=== PATIENT | male | born 1960 | race Two or more races ===

== ENCOUNTER 2017-09-04 15:50 | Inpatient (IN) | payer MEDICAID ==
[2017-09-04 15:50] VITALS: BMI 23.6
--- NOTE | 2017-09-04 16:17 | C.PDOC ---
History Of Present Illness 56 y/o M c PMHx HTN, HLD, DM, gout, CKD p/w worsening renal function. Patient found to have creatinine of 11 on outpatient evaluation today, instructed to come to ED for emergent dialysis. Patient denies fever, chills, chest pain, dyspnea, palpitations, abdominal pain, back pain, numbness, weakness, cramping. Time Seen by Provider: 09/04/17 16:05 Chief Complaint (Nursing): Abnormal Labs Past Medical History Vital Signs: Last Vital Signs Temp 98.7 F 09/04/17 15:54 Pulse 83 09/04/17 16:46 Resp 18 09/04/17 16:46 BP 181/104 H 09/04/17 16:46 Pulse Ox 100 09/04/17 16:46 - Medical History PMH: HTN, Chronic Kidney Disease Family History: States: No Known Family Hx - Social History Hx Alcohol Use: No Hx Substance Use: No - Immunization History Hx Tetanus Toxoid Vaccination: No Hx Influenza Vaccination: No Hx Pneumococcal Vaccination: No Review Of Systems Except As Marked, All Systems Reviewed And Found Negative. Constitutional: Negative for: Fever Cardiovascular: Negative for: Chest Pain Physical Exam - Physical Exam Additional Physical Exam Comments: Gen: NAD Head: NC Eyes: No icterus ENT: MMM Neck: Supple Chest: No tenderness CV: Regular rate Resp: No accessory muscle use Abd: Soft, NT Back: No CVA tenderness Extremities: No tenderness Skin: No rash Neuro: Alert, no focal deficit ED Course And Treatment O2 Sat by Pulse Oximetry: 97 Medical Decision Making Medical Decision Making: Dr. Lezama, patient's house wirer consulted. Dr. Cervantes for catheter placement. Hospitalist accepts patient to their service. NSR 89 bpm, no ST/T wave changes. Normal intervals. No peaked T waves. Labs, EKG, 2 view CXR all performed earlier today, see in EMR and EKG in paper chart. Disposition - Disposition Disposition: HOSPITALIZED Disposition Time: 17:05 Condition: STABLE Forms: [facility] (Surinamese) - Clinical Impression Clinical Impression: Renal insufficiency, Hyperkalemia
[2017-09-04 17:02] LABS: URINE BACTERIA RARE (<OCC); URINE BILIRUBIN NEGATIVE (NEGATIVE); URINE BLOOD 1+ (NEGATIVE); URINE CLARITY Hazy (Clear); URINE COLOR Straw (YELLOW); URINE GLUCOSE (UA) 1+ mg/dL (Normal); URINE LEUKOCYTE ESTERASE NEG Leu/uL (Negative); URINE PROTEIN 3+ mg/dL (NEGATIVE); URINE UROBILINOGEN NORMAL mg/dL (0.2-1.0)
[2017-09-04] MEDS ORDERED: Glucagon Recombinant 1 mg Inj IM PRN (19:35)
[2017-09-04] MEDS ORDERED: Dextrose 50% SYRINGE Inj (50 ml) IV PRN (19:35)
--- NOTE | 2017-09-04 19:58 | CP.PCM.HP ---
<Kelsie Lee - Last Filed: 09/04/17 23:27> History of Present Illness - History of Present Illness History of Present Illness: HPI: 56 year old male with past medical history of new onset ESRD, gout, DM type II, HTN, HLD, anemia and rheumatoid arthritis presents to the ER for emergent dialysis. Patient states he is scheduled for an AV fistula on September 10. Patient went to see his PMD Dr. Nicole today for medical clearance and due to his abnormal labs Dr. Nicole sent the patient to the hospital for emergent dialysis. Patient denies chest pain, shortness of breath, leg edema, palpitations, anuria, nausea, vomiting, fever, recent travel, sick contacts, diarrhea or constipation. PMD: Dr. Nicole Oral Communication Instructor: Dr. Lezama Vascular Surgery: Dr. 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; smokes 6 cigarettes per day for 15 years; social drinker; denies illicit drug use Present on Admission - Present on Admission Any Indicators Present on Admission: No Review of Systems - Constitutional Constitutional: absent: Chills, Fever - EENT Eyes: absent: Blurred Vision - Cardiovascular Cardiovascular: absent: Chest Pain, Dyspnea, Leg Edema, Palpitations, Pedal Edema - Respiratory Respiratory: absent: Dyspnea - Gastrointestinal Gastrointestinal: absent: Abdominal Pain, Constipation, Diarrhea, Nausea, Vomiting - Genitourinary Genitourinary: absent: Dysuria, Hematuria - Musculoskeletal Musculoskeletal: absent: Numbness, Tingling - Neurological Neurological: absent: Dizziness, Headaches, Weakness - Psychiatric Psychiatric: absent: Anxiety Past Patient History - Past Social History Smoking Status: Light Smoker < 10 Cigarettes Daily - CARDIAC Hx Hypertension: Yes - RENAL Hx Chronic Kidney Disease: Yes - ENDOCRINE/METABOLIC Hx Diabetes Mellitus Type 2: Yes - MUSCULOSKELETAL/RHEUMATOLOGICAL Hx Gout: Yes - PSYCHIATRIC Hx Substance Use: No - SURGICAL HISTORY Hx Surgeries: Yes Hx Cataract Extraction: Yes Other/Comment: Spinal cord/tumor - ANESTHESIA Hx Anesthesia: Yes Meds Allergies/Adverse Reactions: Allergies Allergy/AdvReac Type Severity Reaction Status Date / Time No Known Allergies Allergy Verified 01/23/17 10:22 Physical Exam - Constitutional Appears: Well, Non-toxic, No Acute Distress - Head Exam Head Exam: ATRAUMATIC, NORMAL INSPECTION - Eye Exam Eye Exam: EOMI, Normal appearance, PERRL Pupil Exam: NORMAL ACCOMODATION - ENT Exam ENT Exam: Mucous Membranes Moist - Respiratory Exam Respiratory Exam: Clear to Auscultation Bilateral, NORMAL BREATHING PATTERN - Cardiovascular Exam Cardiovascular Exam: REGULAR RHYTHM, RRR, +S1, +S2 - GI/Abdominal Exam GI & Abdominal Exam: Normal Bowel Sounds, Soft. absent: Tenderness - Extremities Exam Extremities exam: Positive for: normal inspection, pedal pulses present. Negative for: joint swelling, pedal edema, tenderness - Neurological Exam Neurological exam: Alert, Oriented x3 - Psychiatric Exam Psychiatric exam: Normal Affect, Normal Mood - Skin Skin Exam: Dry, Intact, Normal Color Results - Vital Signs Recent Vital Signs: Last Vital Signs Temp 98.8 F 09/04/17 19:32 Pulse 91 H 09/04/17 19:32 Resp 20 09/04/17 19:32 BP 166/88 H 09/04/17 19:32 Pulse Ox 98 09/04/17 19:32 - Labs Labs: Laboratory Results - last 24 hr 09/04/17 09/04/17 16:42 16:48 Urine Color Straw Urine Clarity Hazy Urine pH 5.0 Ur Specific [place] 1.010 Urine Protein 3+ H Urine Glucose (UA) 1+ H Urine Ketones Negative Urine Blood 1+ H Urine Nitrate Negative Urine Bilirubin Negative Urine Urobilinogen Normal Ur Leukocyte Esterase Neg Urine WBC (Auto) 1 Urine RBC (Auto) 8 H Urine Bacteria Rare Blood Type A POSITIVE Antibody Screen Negative Assessment & Plan - Assessment and Plan (Free Text) Assessment: 1.) New Onset ESRD - BUN/Cr (from patient's records): 113/11.2 - Vascular Surgery Consult: Dr. Cervantes --> help appreciated - permacath placement 09/05/17 - NPO after midnight - Nephro Consult: Dr. Lezama --> help appreciated 2.) History of Anemia - secondary to ESRD 3.) History of Gout - Continue home medication: - Allopurinol 100mg daily - Colchicine 0.6mg po tiw - hold until the dialysis schedule is in place then can continue after receiving dialysis 4.) History of HTN - Continue home medications: - Norvasc 5mg daily - Coreg 6.25mg po bid - Clonidine 0.2mg po bid 5.) History of HLD - Cholestyramine 4gm po bid 6.) History of DM Type II - ISS - Accucheck - Hypoglycemia protocol 7.) History of RA 8.) Prophylaxis - Pepcid 20mg bid - heparin on hold for surgical procedure 09/05/17 - SCDs Case discussed with Dr. Kamar Lee PGY-1 <Anil Galvin P - Last Filed: 09/05/17 06:44> Results - Vital Signs Recent Vital Signs: Last Vital Signs Temp 98.4 F 09/05/17 00:00 Pulse 87 09/05/17 00:00 Resp 20 09/05/17 00:00 BP 135/79 09/05/17 00:00 Pulse Ox 99 09/05/17 00:00 - Labs Labs: Laboratory Results - last 24 hr 09/04/17 09/04/17 09/04/17 16:42 16:48 21:27 POC Glucose (mg/dL) 123 H Urine Color Straw Urine Clarity Hazy Urine pH 5.0 Ur Specific [place] 1.010 Urine Protein 3+ H Urine Glucose (UA) 1+ H Urine Ketones Negative Urine Blood 1+ H Urine Nitrate Negative Urine Bilirubin Negative Urine Urobilinogen Normal Ur Leukocyte Esterase Neg Urine WBC (Auto) 1 Urine RBC (Auto) 8 H Urine Bacteria Rare Blood Type A POSITIVE Antibody Screen Negative Attending/Attestation - Attestation I have personally seen and examined this patient.: Yes I have fully participated in the care of the patient.: Yes I have reviewed all pertinent clinical information: Yes Notes (Text): Severe CRI with mild hyperkalemia, acidosis, anemia, non compliance with food, h /o HTN, dm controlled, who on preop w/u for av fistula had abnormal labs and recommended to dialysis, permacath will be done today and likely hd today, possible dc then out pt fistula. Patient clinically not symptomatic, no distress. Family h/o renal insufficiency father on hd. 09/05/17 06:44
[2017-09-04] MEDS: (Novolin R) Insulin Human Regular 100 units/ml vial SC SCH (22:00)
--- NOTE | 2017-09-04 22:06 | CP.PCM.CON ---
History of Present Illness - History of Present Illness History of Present Illness: Vascular surgery Consult note for Dr. Kavon Gilliam, PGY-1 Pt S & E at bedside. 56M w/PMH sig for renal failure requiring HD access. Pt sent into hospital by blender helper with Cr 11. Admits to recent rhinorrhea, occasional REES, occasional dizziness/lightheadedness, peripheral neuropathy. Denies anuria, SOB , CP, N & V, F & C, changes in bowel or bladder habits, other complaints. PMH: HTN, HLD, DM, gout, CKD PSH: Benign tumor excision from back All: NDKA SH: Admit to tobacco use #6-7 cigarettes daily x 10 yrs, occasional ETOH use (1- 2 drinks monthly), denies illicit drug use Review of Systems - Review of Systems All systems: reviewed and no additional remarkable complaints except - Constitutional Constitutional: absent: Chills, Fever - EENT Eyes: Blurred Vision. absent: Change in Vision Ears: Dizziness - Cardiovascular Cardiovascular: Dyspnea on Exertion (occasional), Lightheadedness (chronic, intermittent). absent: Chest Pain - Respiratory Respiratory: Cough (occasional) - Gastrointestinal Gastrointestinal: absent: Abdominal Pain, Change in Bowel Habits, Constipation, Diarrhea, Nausea, Vomiting - Genitourinary Genitourinary: absent: Change in Urinary Stream, Difficulty Urinating, Dysuria - Musculoskeletal Musculoskeletal: Numbness, Tingling. absent: Back Pain - Integumentary Integumentary: absent: Non-Healing Lesions - Neurological Neurological: Dizziness. absent: Weakness - Psychiatric Psychiatric: absent: Change in Appetite Past Patient History - Past Medical History & Family History Past Medical History?: Yes - Past Social History Smoking Status: Light Smoker < 10 Cigarettes Daily - CARDIAC Hx Hypertension: Yes - RENAL Hx Chronic Kidney Disease: Yes - ENDOCRINE/METABOLIC Hx Diabetes Mellitus Type 2: Yes - MUSCULOSKELETAL/RHEUMATOLOGICAL Hx Gout: Yes - PSYCHIATRIC Hx Substance Use: No - SURGICAL HISTORY Hx Surgeries: Yes Hx Cataract Extraction: Yes Other/Comment: Spinal cord/tumor - ANESTHESIA Hx Anesthesia: Yes Meds Allergies/Adverse Reactions: Allergies Allergy/AdvReac Type Severity Reaction Status Date / Time No Known Allergies Allergy Verified 01/23/17 10:22 - Medications Medications: Current Medications Allopurinol (Zyloprim) 100 mg PO DAILY [facility] Amlodipine Besylate (Norvasc) 5 mg PO DAILY [facility] Calcitriol (Rocaltrol) 0.25 mcg PO DAILY [facility] Calcium Acetate (Phoslo) 667 mg PO TIDCC [facility] Carvedilol (Coreg) 6.25 mg PO BID [facility] Clonidine HCl (Catapres) 0.2 mg PO BID [facility] Colchicine (Colocrys) 0.6 mg PO DAILY [facility] Dextrose (Dextrose 50% Inj) 0 ml IV STAT PRN; Protocol PRN Reason: Hypoglycemia Protocol Dextrose (Glutose 15) 0 gm PO ONCE PRN; Protocol PRN Reason: Hypoglycemia Protocol Glucagon (Glucagen Diagnostic Kit) 0 mg IM STAT PRN; Protocol PRN Reason: Hypoglycemia Protocol Dextrose (Dextrose 5% In Water 1000 Ml) 1,000 mls @ 0 mls/hr IV .Q0M PRN; Protocol; Per Protocol PRN Reason: Hypoglycemia Protocol Insulin Human Regular (Novolin R) 0 unit SC ACHS [facility] PRN Reason: Protocol Pneumococcal Polyvalent Vaccine (Pneumovax 23 Vaccine) 0.5 ml IM .ONCE ONE Stop: 09/06/17 10:01 Sodium Bicarbonate (Sodium Bicarbonate Tab) 650 mg PO BID [facility] Physical Exam - Constitutional Appears: Non-toxic, No Acute Distress - Head Exam Head Exam: ATRAUMATIC, NORMAL INSPECTION, NORMOCEPHALIC - Eye Exam Eye Exam: EOMI, Normal appearance - ENT Exam ENT Exam: Mucous Membranes Moist, Normal Exam - Neck Exam Neck exam: Positive for: Full Rom, Normal Inspection - Respiratory Exam Respiratory Exam: NORMAL BREATHING PATTERN - Cardiovascular Exam Cardiovascular Exam: REGULAR RHYTHM, +S1, +S2 - GI/Abdominal Exam GI & Abdominal Exam: Soft. absent: Distended, Firm, Guarding, Tenderness - Extremities Exam Extremities exam: Positive for: normal inspection - Neurological Exam Neurological exam: Alert, CN II-XII Intact, Oriented x3 - Psychiatric Exam Psychiatric exam: Normal Affect, Normal Mood - Skin Skin Exam: Dry, Intact, Normal Color, Warm Results - Vital Signs Recent Vital Signs: Last Vital Signs Temp 98.8 F 09/04/17 19:32 Pulse 91 H 09/04/17 19:32 Resp 20 09/04/17 19:32 BP 166/88 H 09/04/17 19:32 Pulse Ox 98 09/04/17 19:32 - Labs Labs: Laboratory Results - last 24 hr 09/04/17 09/04/17 09/04/17 16:42 16:48 21:27 POC Glucose (mg/dL) 123 H Urine Color Straw Urine Clarity Hazy Urine pH 5.0 Ur Specific [place] 1.010 Urine Protein 3+ H Urine Glucose (UA) 1+ H Urine Ketones Negative Urine Blood 1+ H Urine Nitrate Negative Urine Bilirubin Negative Urine Urobilinogen Normal Ur Leukocyte Esterase Neg Urine WBC (Auto) 1 Urine RBC (Auto) 8 H Urine Bacteria Rare Blood Type A POSITIVE Antibody Screen Negative Assessment & Plan - Assessment and Plan (Free Text) Assessment: 56M w/PMH sig for renal failure requiring HD access Plan: Plan for permacath placement tomorrow NPO pMN Contraindications to VTE ppx Consent in chart Further mgmt as per primary and nephro teams DW attending Tawana, PGY-1 - Date & Time Date: 09/04/17 Time: 20:20
[2017-09-05] MEDS: (Novolin R) Insulin Human Regular 100 units/ml vial SC SCH ×4 (07:30→21:11)
[2017-09-05 08:17] LABS: BASO # 0.1 K/uL (0.0-0.2); EOS # 1.3 K/uL (0.0-0.7); EOS % 16.7 % (0.0-4.0); HEMOGLOBIN 7.6 g/dL (12.0-18.0); LYMPH # 1.9 K/uL (1.0-4.3); LYMPH % 24.3 % (20.0-40.0); MEAN CELL VOLUME 81.9 fL (80.0-94.0); MEAN CORPUSCULAR HEMOGLOBIN 26.6 pg (27.0-31.0); MEAN CORPUSCULAR HGB CONC 32.4 g/dL (33.0-37.0); MEAN PLATELET VOLUME 7.8 fL (7.2-11.7); MONO # 0.5 K/uL (0.0-0.8); MONO % 6.8 % (0.0-10.0); NEUT # 4.1 K/uL (1.8-7.0); NEUT % 51.2 % (50.0-75.0); RBC 2.86 Mil/uL (4.40-5.90); RED CELL DISTRIBUTION WIDTH 19.8 % (11.5-14.5)
[2017-09-05 08:23] LABS: PROTHROMBIN TIME 10.6 SECONDS (9.7-12.2)
[2017-09-05 08:33] LABS: IRON 74 ug/dL (49-181)
[2017-09-05 08:42] LABS: % IRON SATURATION 24 (20-55); TOTAL IRON BINDING CAPACITY 305 ug/dL (250-450)
[2017-09-05 08:47] LABS: ALB/GLOB RATIO 0.9 (1.0-2.1); ALBUMIN 3.7 g/dL (3.5-5.0); CALCIUM 8.8 mg/dl (8.6-10.4)
--- NOTE | 2017-09-05 09:19 | CP.PCM.PN ---
<Anton Reddy - Last Filed: 09/05/17 15:30> Subjective - Date & Time of Evaluation Date of Evaluation: 09/05/17 Time of Evaluation: 09:16 - Subjective Subjective: PGY-[address] Nreeida Anaya. No acute events noted overnight. Patient was seen receiving HD. He stated he had some pain at the new catheter site but otherwise he stated he felt well. He understood that he'll need another procedure soon for a longer lasting HD access point, he understood this. He denied all other prompts on review of systems. Objective - Vital Signs/Intake and Output Vital Signs (last 24 hours): Temp Pulse Resp BP Pulse Ox 98.3 F 80 20 140/80 99 09/05/17 08:04 09/05/17 08:04 09/05/17 08:04 09/05/17 08:04 09/05/17 08:04 Intake and Output: 09/05/17 09/05/17 06:59 18:59 Intake Total 240 Balance 240 - Medications Medications: Current Medications Allopurinol (Zyloprim) 100 mg PO DAILY [facility] Amlodipine Besylate (Norvasc) 5 mg PO DAILY [facility] Last Admin: 09/05/17 09:15 Dose: 5 mg Calcitriol (Rocaltrol) 0.25 mcg PO DAILY [facility] Calcium Acetate (Phoslo) 667 mg PO TIDCC [facility] Carvedilol (Coreg) 6.25 mg PO BID [facility] Last Admin: 09/05/17 09:15 Dose: 6.25 mg Cholestyramine Resin (Prevalite) 4 gm PO BID [facility] Clonidine HCl (Catapres) 0.2 mg PO BID [facility] Last Admin: 09/05/17 09:15 Dose: 0.2 mg Dextrose (Dextrose 50% Inj) 0 ml IV STAT PRN; Protocol PRN Reason: Hypoglycemia Protocol Dextrose (Glutose 15) 0 gm PO ONCE PRN; Protocol PRN Reason: Hypoglycemia Protocol Famotidine (Pepcid) 20 mg PO BID [facility] Glucagon (Glucagen Diagnostic Kit) 0 mg IM STAT PRN; Protocol PRN Reason: Hypoglycemia Protocol Dextrose (Dextrose 5% In Water 1000 Ml) 1,000 mls @ 0 mls/hr IV .Q0M PRN; Protocol; Per Protocol PRN Reason: Hypoglycemia Protocol Insulin Human Regular (Novolin R) 0 unit SC ACHS [facility] PRN Reason: Protocol Last Admin: 09/04/17 22:00 Dose: Not Given Pneumococcal Polyvalent Vaccine (Pneumovax 23 Vaccine) 0.5 ml IM .ONCE ONE Stop: 09/06/17 10:01 Sodium Bicarbonate (Sodium Bicarbonate Tab) 650 mg PO BID [facility] - Labs Labs: 09/05/17 08:00 09/05/17 08:00 PT 10.6 SECONDS (9.7-12.2) 09/05/17 08:00 INR 1.0 09/05/17 08:00 APTT 31 SECONDS (21-34) 09/05/17 08:00 - Additional Findings Additional findings: - Constitutional Appears: Well, Non-toxic, No Acute Distress - Head Exam Head Exam: ATRAUMATIC, NORMAL INSPECTION - Eye Exam Eye Exam: EOMI, Normal appearance, PERRL Pupil Exam: NORMAL ACCOMODATION - ENT Exam ENT Exam: Mucous Membranes Moist - Respiratory Exam Respiratory Exam: Clear to Auscultation Bilateral, NORMAL BREATHING PATTERN - Cardiovascular Exam Cardiovascular Exam: REGULAR RHYTHM, RRR, +S1, +S2 - GI/Abdominal Exam GI & Abdominal Exam: Normal Bowel Sounds, Soft. absent: Tenderness - Extremities Exam Extremities exam: Positive for: normal inspection, pedal pulses present. Negative for: joint swelling, pedal edema, tenderness - Neurological Exam Neurological exam: Alert, Oriented x3 - Psychiatric Exam Psychiatric exam: Normal Affect, Normal Mood - Skin Skin Exam: Dry, Intact, Normal Color Assessment and Plan - Assessment and Plan (Free Text) Assessment: New Onset ESRD - Vascular Surgery Consult: Dr. Cervantes --> help appreciated - s/p permacath placement right IJ 09/05/17 - AV fistula scheduled for 09/10/[address] Cervantes - Nephro Consult: Dr. Lezama --> help appreciated - HD scheduled MWF - F/U PTH - Meds: - Calcitriol 0.25mcg PO QD - Sodium Bicarbonate 650mg PO BID - Procrit 10,000u IV MWF History of Anemia - secondary to ESRD - F/U peripheral blood smear - F/U Iron studies, Hep Panel History of Gout - Continue home medication: - Allopurinol 100mg daily - Colchicine 0.6mg po tiw - hold until the dialysis schedule is in place then can continue after receiving dialysis History of HTN - Continue home medications: - Norvasc 5mg daily - Coreg 6.25mg po bid - Clonidine 0.2mg po bid History of HLD - Cholestyramine 4gm po bid History of DM Type II - ISS - Accucheck - Hypoglycemia protocol History of RA Prophylaxis - Pepcid 20mg bid - heparin on hold for surgical procedure 09/05/17 - SCDs <Saurabh Anaya - Last Filed: 09/05/17 18:34> Objective - Vital Signs/Intake and Output Vital Signs (last 24 hours): Temp Pulse Resp BP Pulse Ox 97.3 F L 82 14 130/88 98 09/05/17 15:55 09/05/17 17:29 09/05/17 17:29 09/05/17 17:29 09/05/17 15:00 Intake and Output: 09/05/17 09/05/17 06:59 18:59 Intake Total 240 450 Balance 240 450 - Medications Medications: Current Medications Acetaminophen (Tylenol 325mg Tab) 650 mg PO Q6 PRN PRN Reason: Pain, moderate (4-7) Allopurinol (Zyloprim) 100 mg PO DAILY [facility] Last Admin: 09/05/17 09:18 Dose: 100 mg Amlodipine Besylate (Norvasc) 5 mg PO DAILY [facility] Last Admin: 09/05/17 09:15 Dose: 5 mg Calcitriol (Rocaltrol) 0.25 mcg PO DAILY [facility] Last Admin: 09/05/17 10:00 Dose: Not Given Calcium Acetate (Phoslo) 667 mg PO TIDCC [facility] Last Admin: 09/05/17 12:05 Dose: Not Given Carvedilol (Coreg) 6.25 mg PO BID [facility] Last Admin: 09/05/17 09:15 Dose: 6.25 mg Cholestyramine Resin (Prevalite) 4 gm PO BID [facility] Last Admin: 09/05/17 10:00 Dose: Not Given Clonidine HCl (Catapres) 0.2 mg PO BID [facility] Last Admin: 09/05/17 09:15 Dose: 0.2 mg Dextrose (Dextrose 50% Inj) 0 ml IV STAT PRN; Protocol PRN Reason: Hypoglycemia Protocol Dextrose (Glutose 15) 0 gm PO ONCE PRN; Protocol PRN Reason: Hypoglycemia Protocol Epoetin Chuy (Procrit) 10,000 unit IV MWF [facility] Last Admin: 09/05/17 17:54 Dose: 10,000 unit Famotidine (Pepcid) 20 mg PO BID [facility] Last Admin: 09/05/17 09:17 Dose: 20 mg Glucagon (Glucagen Diagnostic Kit) 0 mg IM STAT PRN; Protocol PRN Reason: Hypoglycemia Protocol Dextrose (Dextrose 5% In Water 1000 Ml) 1,000 mls @ 0 mls/hr IV .Q0M PRN; Protocol; Per Protocol PRN Reason: Hypoglycemia Protocol Sodium Chloride (Sodium Chloride 0.9%) 1,000 mls @ 100 mls/hr IV .Q10H [facility] Last Admin: 09/05/17 13:00 Dose: Not Given Insulin Human Regular (Novolin R) 0 unit SC ACHS [facility] PRN Reason: Protocol Last Admin: 09/05/17 11:30 Dose: Not Given Pneumococcal Polyvalent Vaccine (Pneumovax 23 Vaccine) 0.5 ml IM .ONCE ONE Stop: 09/06/17 10:01 Sodium Bicarbonate (Sodium Bicarbonate Tab) 650 mg PO BID [facility] Last Admin: 09/05/17 09:18 Dose: 650 mg - Labs Labs: 09/05/17 08:00 09/05/17 16:18 PT 10.6 SECONDS (9.7-12.2) 09/05/17 08:00 INR 1.0 09/05/17 08:00 APTT 31 SECONDS (21-34) 09/05/17 08:00 Attending/Attestation - Attestation I have personally seen and examined this patient.: Yes I have fully participated in the care of the patient.: Yes I have reviewed all pertinent clinical information, including history, physical exam and plan: Yes Notes (Text): 09/05/17 18:31 Patient was seen and examined at 2:45 PM Exam, assessment and plan were gone over with the resident. Spoke with Agricultural Extension Educator following patient and patient is for AV Fistula placement for Friday09/10/17. He will need to be NPO after midnight on . Spoke with Head Of Physics Dariel: patient will need to have 3 in-patient HD before discharge. Process for out-patient HD placement has been started. The above was also explained to patient and he expressed understanding. Saurabh Anaya D.O.
[2017-09-05 09:38] LABS: FOLATE 11.1 ng/mL
[2017-09-05] MEDS: Cholestyramine 4 gm/5.5 gm UD Packet PO SCH ×2 (10:00→18:10)
[2017-09-05] MEDS ORDERED: ceFAZolin 1 gm in NS 1 GM/100 ML BAG IVPB ONE (10:43)
[2017-09-05] MEDS ORDERED: HEPARIN-NS 5,000 UNITS/500 ML 5,000 UNIT/500 ML BAG IV ONE ×2 (10:44→11:38)
[2017-09-05] MEDS ORDERED: Lidocaine Hydrochloride 10 ML INJ ONE (10:44)
[2017-09-05] MEDS ORDERED: Iohexol 240 (50 ml) ONE (10:45)
[2017-09-05] MEDS ORDERED: Midazolam 2 MG/2 ML VIAL ONE (10:51)
[2017-09-05] MEDS ORDERED: Propofol 10 mg/ml Inj (20 ML) ONE (10:51)
[2017-09-05] MEDS ORDERED: ePHEDrine 50 mg/ml Inj ONE (11:55)
[2017-09-05] MEDS ORDERED: Sodium Chloride 0.9% 500 ML IV ONE (12:39)
--- NOTE | 2017-09-05 12:39 | PCM.SURG1 ---
Surgeon's Initial Post Op Note - Surgeon's Notes Surgeon: Dr. Cervantes Booking Officer: Dr. Metcalf, PGY-3 Type of Anesthesia: General LMA Anesthesia Administered By: Dr. Oquendo Pre-Operative Diagnosis: End Stage Renal Disease Operative Findings: See operative report Post-Operative Diagnosis: Same Operation Performed: R IJ permacath insertion Specimen/Specimens Removed: none Estimated Blood Loss: EBL {In ML}: 5 Blood Products Given: N/A Drains Used: No Drains Post-Op Condition: Good Date of Surgery/Procedure: 09/05/17 Time of Surgery/Procedure: 12:39
[2017-09-05] MEDS ORDERED: HYDROmorphone 0.5 mg/0.5 ml ISec IVP PRN (12:47)
[2017-09-05] MEDS: Sodium Chloride 0.9% 1,000 ML IV SCH ×2 (13:00→21:59)
--- NOTE | 2017-09-05 13:41 | RAD ---
HISTORY: Status post right IJ permacath insertion COMPARISON: Item FINDINGS: Interval placement right IJ of PermCath with tip in the SVC/RA junction. LUNGS: Central pulmonary vasculature is slightly increased possibly due to mild chronic compensated pulmonary edema/ fluid overload. There also appears to be some areas of atelectasis and nodular densities right upper lobe possibly representing small granulomata. Followup nonemergent CT scan of the chest could be performed for further evaluation of these small nodules. PLEURA: No evidence of pneumothorax or effusion. CARDIOVASCULAR: Cardiomegaly. OSSEOUS STRUCTURES: No significant abnormalities. VISUALIZED UPPER ABDOMEN: Normal. OTHER FINDINGS: None. IMPRESSION: Interval placement of right IJ PermCath with tip in the SVC/RA junction. No evidence of pneumothorax. Findings suggest mild chronic pulmonary edema and/or fluid overload. Minor atelectasis right upper lobe fold within few scattered nodular opacities again noted ; followup studies could be performed as above
--- NOTE | 2017-09-05 13:47 | RAD ---
PROCEDURE: Intraoperative Fluoroscopy. HISTORY: RENAL FAILURE FINDINGS: Fluoroscopic assistance was provided. 20.4 seconds fluoroscopy time utilized during this procedure. Radiation dose = 1.26 mGy. Please refer to the operative report from ELISABET Palmer.
--- NOTE | 2017-09-05 13:48 | CP.PCM.CON ---
History of Present Illness - History of Present Illness History of Present Illness: 56M w/PMH sig for renal failure requiring HD, admitted with creatinine > 11mg% .. Pt sent into hospital with Cr 11and hyperkalemia. Admits to recent rhinorrhea, occasional REES, occasional dizziness/lightheadedness, peripheral neuropathy. Denies anuria, SOB, CP, N & V, F & C, changes in bowel or bladder habits, other complaints. PMH: HTN, HLD, DM, gout, CKD 5, rheumatoid arthritis. PSH: Benign tumor excision from back All: NDKA SH: Admit to tobacco use #6-7 cigarettes daily x 10 yrs, occasional ETOH use (1- 2 drinks monthly), denies illicit drug use Now s/p permcath insertion. Review of Systems - Constitutional Constitutional: Fatigue, Weakness - EENT Eyes: Blurred Vision, Change in Vision Ears: absent: As Per HPI, Decreased Hearing, Ear Discharge, Ear Pain, Tinnitus, Abnormal Hearing, Disequilibrium, Dizziness, Other Nose/Mouth/Throat: Epistaxis - Cardiovascular Cardiovascular: Dyspnea on Exertion - Respiratory Respiratory: Cough, Dyspnea on Exertion - Gastrointestinal Gastrointestinal: absent: As Per HPI, Abdominal Pain, Belching, Bloating, Change in Bowel Habits, Change in Stool Character, Coffee Ground Emesis, Constipation, Cramping, Diarrhea, Dyspepsia, Dysphagia, Early Satiety, Excessive Flatus, Fecal Incontinence, Heartburn, Hematemesis, Hematochezia, Loose Stools, Melena, Nausea, Odynophagia, Temesmus, Vomiting, Other - Genitourinary Genitourinary: As Per HPI - Musculoskeletal Musculoskeletal: Muscle Cramps, Muscle Weakness, Myalgias - Neurological Neurological: Weakness Past Patient History - Past Medical History & Family History Past Medical History?: Yes - Past Social History Smoking Status: Light Smoker < 10 Cigarettes Daily Chewing Tobacco Use: No Cigar Use: No Alcohol: Occasional Drugs: Denies Home Situation {Lives}: With Family - CARDIAC Hx Hypertension: Yes - RENAL Hx Chronic Kidney Disease: Yes - ENDOCRINE/METABOLIC Hx Diabetes Mellitus Type 2: Yes - MUSCULOSKELETAL/RHEUMATOLOGICAL Hx Gout: Yes - PSYCHIATRIC Hx Substance Use: No - SURGICAL HISTORY Hx Surgeries: Yes Hx Cataract Extraction: Yes Other/Comment: Spinal cord/tumor - ANESTHESIA Hx Anesthesia: Yes Meds Allergies/Adverse Reactions: Allergies Allergy/AdvReac Type Severity Reaction Status Date / Time No Known Allergies Allergy Verified 01/23/17 10:22 - Medications Medications: Current Medications Acetaminophen (Tylenol 325mg Tab) 650 mg PO Q6 PRN PRN Reason: Pain, moderate (4-7) Allopurinol (Zyloprim) 100 mg PO DAILY [facility] Last Admin: 09/05/17 09:18 Dose: 100 mg Amlodipine Besylate (Norvasc) 5 mg PO DAILY [facility] Last Admin: 09/05/17 09:15 Dose: 5 mg Calcitriol (Rocaltrol) 0.25 mcg PO DAILY [facility] Calcium Acetate (Phoslo) 667 mg PO TIDCC [facility] Last Admin: 09/05/17 08:00 Dose: 667 mg Carvedilol (Coreg) 6.25 mg PO BID [facility] Last Admin: 09/05/17 09:15 Dose: 6.25 mg Cholestyramine Resin (Prevalite) 4 gm PO BID [facility] Clonidine HCl (Catapres) 0.2 mg PO BID [facility] Last Admin: 09/05/17 09:15 Dose: 0.2 mg Dextrose (Dextrose 50% Inj) 0 ml IV STAT PRN; Protocol PRN Reason: Hypoglycemia Protocol Dextrose (Glutose 15) 0 gm PO ONCE PRN; Protocol PRN Reason: Hypoglycemia Protocol Famotidine (Pepcid) 20 mg PO BID [facility] Last Admin: 09/05/17 09:17 Dose: 20 mg Glucagon (Glucagen Diagnostic Kit) 0 mg IM STAT PRN; Protocol PRN Reason: Hypoglycemia Protocol Hydromorphone HCl (Dilaudid) 0.5 mg IVP Q10M PRN PRN Reason: Pain, moderate (4-7) Stop: 09/05/17 14:48 Dextrose (Dextrose 5% In Water 1000 Ml) 1,000 mls @ 0 mls/hr IV .Q0M PRN; Protocol; Per Protocol PRN Reason: Hypoglycemia Protocol Sodium Chloride (Sodium Chloride 0.9%) 1,000 mls @ 100 mls/hr IV .Q10H [facility] Insulin Human Regular (Novolin R) 0 unit SC ACHS [facility] PRN Reason: Protocol Last Admin: 09/04/17 22:00 Dose: Not Given Ondansetron HCl (Zofran Inj) 4 mg IVP ONCE PRN PRN Reason: Nausea/Vomiting Stop: 09/05/17 14:49 Pneumococcal Polyvalent Vaccine (Pneumovax 23 Vaccine) 0.5 ml IM .ONCE ONE Stop: 09/06/17 10:01 Sodium Bicarbonate (Sodium Bicarbonate Tab) 650 mg PO BID [facility] Last Admin: 09/05/17 09:18 Dose: 650 mg Physical Exam - Constitutional Appears: No Acute Distress, Chronically Ill - Head Exam Head Exam: ATRAUMATIC, NORMAL INSPECTION - Eye Exam Eye Exam: EOMI, Normal appearance - Neck Exam Neck exam: Positive for: Normal Inspection. Negative for: Tenderness - Respiratory Exam Respiratory Exam: Clear to Auscultation Bilateral, NORMAL BREATHING PATTERN - Cardiovascular Exam Cardiovascular Exam: REGULAR RHYTHM, +S1 - GI/Abdominal Exam GI & Abdominal Exam: Soft. absent: Tenderness - Extremities Exam Extremities exam: Positive for: normal inspection. Negative for: tenderness - Neurological Exam Neurological exam: Alert, CN II-XII Intact - Skin Skin Exam: Dry, Warm Results - Vital Signs Recent Vital Signs: Last Vital Signs Temp 97.9 F 09/05/17 12:39 Pulse 67 09/05/17 13:30 Resp 16 09/05/17 13:30 BP 137/80 09/05/17 13:30 Pulse Ox 100 09/05/17 13:30 - Labs Result Diagrams: 09/05/17 08:00 09/05/17 08:00 Labs: Laboratory Results - last 24 hr 09/04/17 09/04/17 09/04/17 16:42 16:48 21:27 WBC RBC Hgb Hct MCV MCH MCHC RDW Plt Count MPV Neut % (Auto) Lymph % (Auto) [place] % (Auto) Eos % (Auto) Baso % (Auto) Neut # (Auto) Lymph # (Auto) [place] # (Auto) Eos # (Auto) Baso # (Auto) PT INR APTT Sodium Potassium Chloride Carbon Dioxide Anion Gap BUN Creatinine Est GFR ( Amer) Est GFR (Non-Af Amer) POC Glucose (mg/dL) 123 H Random Glucose Hemoglobin A1c Calcium Phosphorus Magnesium Iron TIBC % Saturation Total Bilirubin AST ALT Alkaline Phosphatase Total Protein Albumin Globulin Albumin/Globulin Ratio Triglycerides Cholesterol LDL Cholesterol Direct HDL Cholesterol Vitamin B12 Folate TSH 3rd Generation Urine Color Straw Urine Clarity Hazy Urine pH 5.0 Ur Specific [place] 1.010 Urine Protein 3+ H Urine Glucose (UA) 1+ H Urine Ketones Negative Urine Blood 1+ H Urine Nitrate Negative Urine Bilirubin Negative Urine Urobilinogen Normal Ur Leukocyte Esterase Neg Urine WBC (Auto) 1 Urine RBC (Auto) 8 H Urine Bacteria Rare Blood Type A POSITIVE Antibody Screen Negative 09/05/17 09/05/17 09/05/17 07:19 08:00 08:00 WBC 8.0 RBC 2.86 L Hgb 7.6 L Hct 23.4 L MCV 81.9 MCH 26.6 L MCHC 32.4 L RDW 19.8 H Plt Count 280 MPV 7.8 Neut % (Auto) 51.2 Lymph % (Auto) 24.3 [place] % (Auto) 6.8 Eos % (Auto) 16.7 H Baso % (Auto) 1.0 Neut # (Auto) 4.1 Lymph # (Auto) 1.9 [place] # (Auto) 0.5 Eos # (Auto) 1.3 H Baso # (Auto) 0.1 PT 10.6 INR 1.0 APTT 31 Sodium Potassium Chloride Carbon Dioxide Anion Gap BUN Creatinine Est GFR ( Amer) Est GFR (Non-Af Amer) POC Glucose (mg/dL) 74 Random Glucose Hemoglobin A1c Calcium Phosphorus Magnesium Iron TIBC % Saturation Total Bilirubin AST ALT Alkaline Phosphatase Total Protein Albumin Globulin Albumin/Globulin Ratio Triglycerides Cholesterol LDL Cholesterol Direct HDL Cholesterol Vitamin B12 Folate TSH 3rd Generation Urine Color Urine Clarity Urine pH Ur Specific [place] Urine Protein Urine Glucose (UA) Urine Ketones Urine Blood Urine Nitrate Urine Bilirubin Urine Urobilinogen Ur Leukocyte Esterase Urine WBC (Auto) Urine RBC (Auto) Urine Bacteria Blood Type Antibody Screen 09/05/17 09/05/17 09/05/17 08:00 08:00 08:00 WBC RBC Hgb Hct MCV MCH MCHC RDW Plt Count MPV Neut % (Auto) Lymph % (Auto) [place] % (Auto) Eos % (Auto) Baso % (Auto) Neut # (Auto) Lymph # (Auto) [place] # (Auto) Eos # (Auto) Baso # (Auto) PT INR APTT Sodium 142 Potassium 5.8 H Chloride 114 H Carbon Dioxide 14 L Anion Gap 20 BUN 113 H* Creatinine 11.3 H* Est GFR ( Amer) 6 Est GFR (Non-Af Amer) 5 POC Glucose (mg/dL) Random Glucose 75 Hemoglobin A1c 6.0 Calcium 8.8 Phosphorus 9.0 H Magnesium 1.7 Iron 74 TIBC 305 % Saturation 24 Total Bilirubin 0.3 AST 22 ALT 17 L Alkaline Phosphatase 58 Total Protein 7.8 Albumin 3.7 Globulin 4.1 H Albumin/Globulin Ratio 0.9 L Triglycerides 149 Cholesterol 170 LDL Cholesterol Direct 80 HDL Cholesterol 28 L Vitamin B12 Folate TSH 3rd Generation Urine Color Urine Clarity Urine pH Ur Specific [place] Urine Protein Urine Glucose (UA) Urine Ketones Urine Blood Urine Nitrate Urine Bilirubin Urine Urobilinogen Ur Leukocyte Esterase Urine WBC (Auto) Urine RBC (Auto) Urine Bacteria Blood Type Antibody Screen 09/05/17 09/05/17 08:00 13:15 WBC RBC Hgb Hct MCV MCH MCHC RDW Plt Count MPV Neut % (Auto) Lymph % (Auto) [place] % (Auto) Eos % (Auto) Baso % (Auto) Neut # (Auto) Lymph # (Auto) [place] # (Auto) Eos # (Auto) Baso # (Auto) PT INR APTT Sodium Potassium Chloride Carbon Dioxide Anion Gap BUN Creatinine Est GFR ( Amer) Est GFR (Non-Af Amer) POC Glucose (mg/dL) 83 Random Glucose Hemoglobin A1c Calcium Phosphorus Magnesium Iron TIBC % Saturation Total Bilirubin AST ALT Alkaline Phosphatase Total Protein Albumin Globulin Albumin/Globulin Ratio Triglycerides Cholesterol LDL Cholesterol Direct HDL Cholesterol Vitamin B12 387 Folate 11.1 TSH 3rd Generation 2.66 Urine Color Urine Clarity Urine pH Ur Specific [place] Urine Protein Urine Glucose (UA) Urine Ketones Urine Blood Urine Nitrate Urine Bilirubin Urine Urobilinogen Ur Leukocyte Esterase Urine WBC (Auto) Urine RBC (Auto) Urine Bacteria Blood Type Antibody Screen Assessment & Plan (1) ESRD (end stage renal disease) Status: Acute (2) Type 2 diabetes mellitus with diabetic nephropathy Status: Acute (3) HTN (hypertension) Status: Acute (4) Rheumatoid arthritis Status: Acute (5) Hyperkalemia Status: Acute - Assessment and Plan (Free Text) Plan: dialysis today check hep panel check fe stores, phos, PTH Needs AV access Add ESAs
[2017-09-05 17:10] LABS: HEPATITIS B SURFACE AG Negative (NEGATIVE)
[2017-09-05 17:16] LABS: HEPATITIS B CORE AB NEGATIVE (NEGATIVE)
[2017-09-05 17:27] LABS: HEPATITIS C ANTIBODY NEGATIVE (NEGATIVE)
[2017-09-05] MEDS: Epoetin Alfa 10,000 unit/ml Dialysis IV SCH (17:54)
--- NOTE | 2017-09-05 22:57 | OP ---
PROCEDURE DATE: 09/05/2017 PREOPERATIVE DIAGNOSIS: Renal failure. POSTOPERATIVE DIAGNOSIS: Renal failure. PROCEDURE CARRIED OUT: Placement of PermCath in right jugular vein with C-arm fluoroscopy with ultrasound-guided puncture and micropuncture technique. SURGEON: Servando Cervantes Jr., MD REMEDIATION CONSULTANT: Dr. Metcalf. ANESTHESIOLOGIST: Mr. Allred. Laryngeal mask airway. INDICATIONS: The patient is a middle age [place] man with renal insufficiency and now requires urgent dialysis. OPERATIVE FINDINGS: Catheter was inserted uneventfully via jugular vein. DESCRIPTION OF PROCEDURE: The patient was given local anesthesia under ultrasound guidance and micropuncture technique. The right jugular vein was punctured. Under fluoroscopic control, a small wire was advanced centrally. This was subsequently exchanged for a 0.035 wire and sheath dilator was passed and then the catheter was positioned originally on the right chest wall going to the jugular vein and terminating at the superior vena cava of the right atrium. This was flushed with heparinized saline with excellent return. It was secured to the skin with sutures. The procedure was then terminated. Blood loss was 20 mL. Fluoroscopic images of the neck showed the vein was 15 mm in diameter with normal compressibility and no intraluminal thrombosis. Servando Cervantes Jr., MD
[2017-09-06] MEDS: (Novolin R) Insulin Human Regular 100 units/ml vial SC SCH ×4 (07:48→21:42)
[2017-09-06 08:25] LABS: BASO # 0.1 K/uL (0.0-0.2); BASO % 0.6 % (0.0-2.0); EOS % 10.4 % (0.0-4.0); HEMOGLOBIN 7.4 g/dL (12.0-18.0); LYMPH # 1.7 K/uL (1.0-4.3); LYMPH % 17.2 % (20.0-40.0); MEAN CELL VOLUME 81.4 fL (80.0-94.0); MEAN CORPUSCULAR HEMOGLOBIN 26.7 pg (27.0-31.0); MEAN CORPUSCULAR HGB CONC 32.8 g/dL (33.0-37.0); MEAN PLATELET VOLUME 8.1 fL (7.2-11.7); MONO # 0.7 K/uL (0.0-0.8); MONO % 7.3 % (0.0-10.0); NEUT # 6.3 K/uL (1.8-7.0); NEUT % 64.5 % (50.0-75.0); NRBC % 0.1 % (0.0-2.0); RBC 2.78 Mil/uL (4.40-5.90); RED CELL DISTRIBUTION WIDTH 19.9 % (11.5-14.5); WHITE BLOOD COUNT 9.8 K/uL (4.8-10.8)
[2017-09-06] MEDS: Sodium Chloride 0.9% 1,000 ML IV SCH (08:31)
[2017-09-06 09:02] LABS: ALB/GLOB RATIO 0.9 (1.0-2.1); ALBUMIN 3.3 g/dL (3.5-5.0); CALCIUM 7.8 mg/dl (8.6-10.4)
--- NOTE | 2017-09-06 09:16 | CP.PCM.PN ---
Subjective - Date & Time of Evaluation Date of Evaluation: 09/06/17 Time of Evaluation: 09:11 - Subjective Subjective: PGY-[address] Nereida Anaya. No acute events noted overnight. He denied all other prompts on review of systems. He had his first HD yesterday and stated it went well. He is aware of the upcoming surgery on 09/10/17. He did not offer any complaints. Objective - Vital Signs/Intake and Output Vital Signs (last 24 hours): Temp Pulse Resp BP Pulse Ox 98.7 F 101 H 18 143/80 95 09/06/17 08:29 09/06/17 07:15 09/06/17 07:00 09/06/17 07:00 09/06/17 07:00 - Medications Medications: Current Medications Acetaminophen (Tylenol 325mg Tab) 650 mg PO Q6 PRN PRN Reason: Pain, moderate (4-7) Last Admin: 09/06/17 08:29 Dose: 650 mg Allopurinol (Zyloprim) 100 mg PO DAILY [facility] Last Admin: 09/05/17 09:18 Dose: 100 mg Amlodipine Besylate (Norvasc) 5 mg PO DAILY [facility] Last Admin: 09/05/17 09:15 Dose: 5 mg Calcitriol (Rocaltrol) 0.25 mcg PO DAILY [facility] Last Admin: 09/05/17 10:00 Dose: Not Given Calcium Acetate (Phoslo) 667 mg PO TIDCC [facility] Last Admin: 09/06/17 08:30 Dose: 667 mg Carvedilol (Coreg) 6.25 mg PO BID [facility] Last Admin: 09/05/17 18:10 Dose: 6.25 mg Cholestyramine Resin (Prevalite) 4 gm PO BID [facility] Last Admin: 09/05/17 18:10 Dose: Not Given Clonidine HCl (Catapres) 0.2 mg PO BID [facility] Last Admin: 09/05/17 18:45 Dose: 0.2 mg Dextrose (Dextrose 50% Inj) 0 ml IV STAT PRN; Protocol PRN Reason: Hypoglycemia Protocol Dextrose (Glutose 15) 0 gm PO ONCE PRN; Protocol PRN Reason: Hypoglycemia Protocol Epoetin Chuy (Procrit) 10,000 unit IV MWF [facility] Last Admin: 09/05/17 17:54 Dose: 10,000 unit Famotidine (Pepcid) 20 mg PO BID [facility] Last Admin: 09/05/17 18:10 Dose: 20 mg Glucagon (Glucagen Diagnostic Kit) 0 mg IM STAT PRN; Protocol PRN Reason: Hypoglycemia Protocol Dextrose (Dextrose 5% In Water 1000 Ml) 1,000 mls @ 0 mls/hr IV .Q0M PRN; Protocol; Per Protocol PRN Reason: Hypoglycemia Protocol Sodium Chloride (Sodium Chloride 0.9%) 1,000 mls @ 100 mls/hr IV .Q10H [facility] Last Admin: 09/06/17 08:31 Dose: 100 mls/hr Insulin Human Regular (Novolin R) 0 unit SC ACHS [facility] PRN Reason: Protocol Last Admin: 09/06/17 07:48 Dose: Not Given Pneumococcal Polyvalent Vaccine (Pneumovax 23 Vaccine) 0.5 ml IM .ONCE ONE Stop: 09/06/17 10:01 Sodium Bicarbonate (Sodium Bicarbonate Tab) 650 mg PO BID [facility] Last Admin: 09/05/17 18:30 Dose: 650 mg - Labs Labs: 09/06/17 08:15 09/06/17 08:15 PT 10.6 SECONDS (9.7-12.2) 09/05/17 08:00 INR 1.0 09/05/17 08:00 APTT 31 SECONDS (21-34) 09/05/17 08:00 - Additional Findings Additional findings: - Constitutional Appears: Well, Non-toxic, No Acute Distress - Head Exam Head Exam: ATRAUMATIC, NORMAL INSPECTION R IJ permacath in place c/d/i - Eye Exam Eye Exam: EOMI, Normal appearance, PERRL Pupil Exam: NORMAL ACCOMODATION - ENT Exam ENT Exam: Mucous Membranes Moist - Respiratory Exam Respiratory Exam: Clear to Auscultation Bilateral, NORMAL BREATHING PATTERN - Cardiovascular Exam Cardiovascular Exam: REGULAR RHYTHM, RRR, +S1, +S2 - GI/Abdominal Exam GI & Abdominal Exam: Normal Bowel Sounds, Soft. absent: Tenderness - Extremities Exam Extremities exam: Positive for: normal inspection, pedal pulses present. Negative for: joint swelling, pedal edema, tenderness - Neurological Exam Neurological exam: Alert, Oriented x3 - Psychiatric Exam Psychiatric exam: Normal Affect, Normal Mood - Skin Skin Exam: Dry, Intact, Normal Color Assessment and Plan - Assessment and Plan (Free Text) Assessment: New Onset ESRD - Vascular Surgery Consult: Dr. Cervantes --> help appreciated - s/p permacath placement right IJ 09/05/17 - AV fistula scheduled for 09/10/[address] Cervantes - Nephro Consult: Dr. Lezama --> help appreciated - HD scheduled MWF - F/U PTH - Meds: - Calcitriol 0.25mcg PO QD - Sodium Bicarbonate 650mg PO BID - Procrit 10,000u IV MWF History of Anemia - Anemia of chronic disease as indicated by high Ferritin - F/U peripheral blood smear - Iron NORMAL, TIBC NORMAL, % Saturation NORMAL, Ferritin ELEVATED - Hep panel: Hep Bs Antibody Positive History of Gout - Continue home medication: - Allopurinol 100mg daily - Colchicine 0.6mg po tiw - hold until the dialysis schedule is in place then can continue after receiving dialysis History of HTN - Continue home medications: - Norvasc 5mg daily - Coreg 6.25mg po bid - Clonidine 0.2mg po bid History of HLD - Cholestyramine 4gm po bid History of DM Type II - ISS - Accucheck - Hypoglycemia protocol History of RA Prophylaxis - Pepcid 20mg bid - heparin on hold for surgical procedure 09/05/17 - SCDs
[2017-09-06] MEDS: Cholestyramine 4 gm/5.5 gm UD Packet PO SCH ×2 (09:30→19:11)
--- NOTE | 2017-09-06 09:47 | CP.PCM.PN ---
Subjective - Date & Time of Evaluation Date of Evaluation: 09/06/17 Time of Evaluation: 09:45 - Subjective Subjective: Stable first dialysis - tolerated well still very weak HTN better controlled due for next HD today Objective - Vital Signs/Intake and Output Vital Signs (last 24 hours): Temp Pulse Resp BP Pulse Ox 98.7 F 101 H 18 143/80 95 09/06/17 08:29 09/06/17 07:15 09/06/17 07:00 09/06/17 07:00 09/06/17 07:00 - Medications Medications: Current Medications Acetaminophen (Tylenol 325mg Tab) 650 mg PO Q6 PRN PRN Reason: Pain, moderate (4-7) Last Admin: 09/06/17 08:29 Dose: 650 mg Allopurinol (Zyloprim) 100 mg PO DAILY [facility] Last Admin: 09/06/17 09:27 Dose: 100 mg Amlodipine Besylate (Norvasc) 5 mg PO DAILY [facility] Last Admin: 09/06/17 09:27 Dose: 5 mg Calcitriol (Rocaltrol) 0.25 mcg PO DAILY [facility] Last Admin: 09/06/17 09:27 Dose: 0.25 mcg Calcium Acetate (Phoslo) 667 mg PO TIDCC [facility] Last Admin: 09/06/17 08:30 Dose: 667 mg Carvedilol (Coreg) 6.25 mg PO BID [facility] Last Admin: 09/06/17 09:28 Dose: 6.25 mg Cholestyramine Resin (Prevalite) 4 gm PO BID [facility] Last Admin: 09/06/17 09:30 Dose: 4 gm Clonidine HCl (Catapres) 0.2 mg PO BID [facility] Last Admin: 09/06/17 09:28 Dose: 0.2 mg Dextrose (Dextrose 50% Inj) 0 ml IV STAT PRN; Protocol PRN Reason: Hypoglycemia Protocol Dextrose (Glutose 15) 0 gm PO ONCE PRN; Protocol PRN Reason: Hypoglycemia Protocol Epoetin Chuy (Procrit) 10,000 unit IV MWF [facility] Last Admin: 09/05/17 17:54 Dose: 10,000 unit Famotidine (Pepcid) 20 mg PO BID [facility] Last Admin: 09/06/17 09:28 Dose: 20 mg Glucagon (Glucagen Diagnostic Kit) 0 mg IM STAT PRN; Protocol PRN Reason: Hypoglycemia Protocol Dextrose (Dextrose 5% In Water 1000 Ml) 1,000 mls @ 0 mls/hr IV .Q0M PRN; Protocol; Per Protocol PRN Reason: Hypoglycemia Protocol Sodium Chloride (Sodium Chloride 0.9%) 1,000 mls @ 100 mls/hr IV .Q10H [facility] Last Admin: 09/06/17 08:31 Dose: 100 mls/hr Insulin Human Regular (Novolin R) 0 unit SC ACHS [facility] PRN Reason: Protocol Last Admin: 09/06/17 07:48 Dose: Not Given Pneumococcal Polyvalent Vaccine (Pneumovax 23 Vaccine) 0.5 ml IM .ONCE ONE Stop: 09/06/17 10:01 Last Admin: 09/06/17 09:39 Dose: Not Given Sodium Bicarbonate (Sodium Bicarbonate Tab) 650 mg PO BID [facility] Last Admin: 09/06/17 09:28 Dose: 650 mg - Labs Labs: 09/06/17 08:15 09/06/17 08:15 PT 10.6 SECONDS (9.7-12.2) 09/05/17 08:00 INR 1.0 09/05/17 08:00 APTT 31 SECONDS (21-34) 09/05/17 08:00 - Constitutional Appears: No Acute Distress, Chronically Ill - Head Exam Head Exam: ATRAUMATIC, NORMAL INSPECTION - Eye Exam Eye Exam: EOMI, Normal appearance - Neck Exam Neck Exam: Normal Inspection. absent: Tenderness - Cardiovascular Exam Cardiovascular Exam: REGULAR RHYTHM, +S1 - Extremities Exam Extremities Exam: Normal Inspection. absent: Tenderness - Neurological Exam Neurological Exam: Alert, CN II-XII Intact - Skin Skin Exam: Dry, Warm Assessment and Plan (1) ESRD (end stage renal disease) Status: Acute (2) Type 2 diabetes mellitus with diabetic nephropathy Status: Acute (3) HTN (hypertension) Status: Acute (4) Rheumatoid arthritis Status: Acute (5) Hyperkalemia Status: Acute - Assessment and Plan (Free Text) Plan: Repeat dialysis today then MWF Stop IV fluids, na bicarb continue phos binders Monitor BP
[2017-09-06] MEDS ORDERED: Pneumococcal 23-Valent Vaccine IM ONE (10:00)
--- NOTE | 2017-09-07 01:01 | CP.PCM.PN ---
<Reynold Painting - Last Filed: 09/07/17 06:33> Subjective - Date & Time of Evaluation Date of Evaluation: 09/07/17 Time of Evaluation: 06:10 - Subjective Subjective: Medicine progress note for Dr. Nereida Anaya Patient seen and examined. Patient was complaining of right knee pain overnight due to his gout and was also found febrile with Tmax 102.2. Patient had no other complaints. Objective - Vital Signs/Intake and Output Vital Signs (last 24 hours): Temp Pulse Resp BP Pulse Ox 98.5 F 89 20 101/63 95 09/07/17 00:00 09/07/17 00:00 09/07/17 00:00 09/07/17 00:00 09/07/17 00:00 Intake and Output: 09/06/17 09/07/17 18:59 06:59 Intake Total 200 Output Total 300 Balance -100 - Medications Medications: Current Medications Acetaminophen (Tylenol 325mg Tab) 650 mg PO Q6 PRN PRN Reason: Pain, moderate (4-7) Last Admin: 09/06/17 20:35 Dose: 650 mg Allopurinol (Zyloprim) 100 mg PO DAILY [facility] Last Admin: 09/06/17 09:27 Dose: 100 mg Amlodipine Besylate (Norvasc) 5 mg PO DAILY [facility] Last Admin: 09/06/17 09:27 Dose: 5 mg Calcitriol (Rocaltrol) 0.25 mcg PO DAILY [facility] Last Admin: 09/06/17 09:27 Dose: 0.25 mcg Calcium Acetate (Phoslo) 667 mg PO TIDCC [facility] Last Admin: 09/06/17 19:10 Dose: 667 mg Carvedilol (Coreg) 6.25 mg PO BID [facility] Last Admin: 09/06/17 19:10 Dose: 6.25 mg Cholestyramine Resin (Prevalite) 4 gm PO BID [facility] Last Admin: 09/06/17 19:11 Dose: 4 gm Clonidine HCl (Catapres) 0.2 mg PO BID [facility] Last Admin: 09/06/17 19:11 Dose: 0.2 mg Dextrose (Dextrose 50% Inj) 0 ml IV STAT PRN; Protocol PRN Reason: Hypoglycemia Protocol Dextrose (Glutose 15) 0 gm PO ONCE PRN; Protocol PRN Reason: Hypoglycemia Protocol Epoetin Chuy (Procrit) 10,000 unit IV MWF [facility] Last Admin: 09/05/17 17:54 Dose: 10,000 unit Famotidine (Pepcid) 20 mg PO BID [facility] Last Admin: 09/06/17 19:11 Dose: 20 mg Glucagon (Glucagen Diagnostic Kit) 0 mg IM STAT PRN; Protocol PRN Reason: Hypoglycemia Protocol Dextrose (Dextrose 5% In Water 1000 Ml) 1,000 mls @ 0 mls/hr IV .Q0M PRN; Protocol; Per Protocol PRN Reason: Hypoglycemia Protocol Insulin Human Regular (Novolin R) 0 unit SC ACHS [facility] PRN Reason: Protocol Last Admin: 09/06/17 21:42 Dose: Not Given - Labs Labs: 09/06/17 08:15 09/06/17 08:15 PT 10.6 SECONDS (9.7-12.2) 09/05/17 08:00 INR 1.0 09/05/17 08:00 APTT 31 SECONDS (21-34) 09/05/17 08:00 - Additional Findings Additional findings: - Constitutional Appears: Well, Non-toxic, No Acute Distress - Head Exam Head Exam: ATRAUMATIC, NORMAL INSPECTION R IJ permacath in place c/d/i - Eye Exam Eye Exam: EOMI, Normal appearance, PERRL Pupil Exam: NORMAL ACCOMODATION - ENT Exam ENT Exam: Mucous Membranes Moist - Respiratory Exam Respiratory Exam: Clear to Auscultation Bilateral, NORMAL BREATHING PATTERN - Cardiovascular Exam Cardiovascular Exam: REGULAR RHYTHM, RRR, +S1, +S2 - GI/Abdominal Exam GI & Abdominal Exam: Normal Bowel Sounds, Soft. absent: Tenderness - Extremities Exam Extremities exam: Positive for: normal inspection, pedal pulses present. Negative for: joint swelling, pedal edema, tenderness - Neurological Exam Neurological exam: Alert, Oriented x3 - Psychiatric Exam Psychiatric exam: Normal Affect, Normal Mood - Skin Skin Exam: Dry, Intact, Normal Color Assessment and Plan - Assessment and Plan (Free Text) Plan: New Onset ESRD - Vascular Surgery Consult: Dr. Cervantes --> help appreciated - s/p permacath placement right IJ 09/05/17 - AV fistula scheduled for 09/10/[address] Cervantes - Nephro Consult: Dr. Lezama --> help appreciated - HD scheduled MWF - F/U PTH - Meds: - Calcitriol 0.25mcg PO QD - Sodium Bicarbonate 650mg PO BID - Procrit 10,000u IV MWF Fever - Tmax 102.2 - Given dose of Toradol 15 mg IV overnight - f/u blood cultures - f/u CXR History of Anemia - Anemia of chronic disease as indicated by high Ferritin - F/U peripheral blood smear - Iron NORMAL, TIBC NORMAL, % Saturation NORMAL, Ferritin ELEVATED - Hep panel: Hep Bs Antibody Positive History of Gout - Continue home medication: - Allopurinol 100mg daily - Colchicine 0.6mg po tiw - hold until the dialysis schedule is in place then can continue after receiving dialysis History of HTN - Continue home medications: - Norvasc 5mg daily - Coreg 6.25mg po bid - Clonidine 0.2mg po bid History of HLD - Cholestyramine 4gm po bid History of DM Type II - ISS - Accucheck - Hypoglycemia protocol History of RA Prophylaxis - Pepcid 20mg bid - heparin on hold for surgical procedure 09/05/17 - SCDs To be discussed with Dr. Nereida Anaya <Saurabh Anaya - Last Filed: 09/07/17 20:42> Objective - Vital Signs/Intake and Output Vital Signs (last 24 hours): Temp Pulse Resp BP Pulse Ox 100.5 F H 103 H 20 91/56 L 95 09/07/17 18:14 09/07/17 18:18 09/07/17 18:14 09/07/17 18:14 09/07/17 18:14 Intake and Output: 09/07/17 09/08/17 18:59 06:59 Intake Total 1100 Output Total 500 140 Balance 600 -140 - Medications Medications: Current Medications Acetaminophen (Tylenol 325mg Tab) 650 mg PO Q6 PRN PRN Reason: Pain, moderate (4-7) Last Admin: 09/07/17 16:30 Dose: 650 mg Acetaminophen (Tylenol 325mg Tab) 650 mg PO Q6 PRN PRN Reason: Fever >100.4 F Allopurinol (Zyloprim) 100 mg PO DAILY [facility] Last Admin: 09/07/17 10:46 Dose: 100 mg Amlodipine Besylate (Norvasc) 5 mg PO DAILY [facility] Last Admin: 09/07/17 10:46 Dose: 5 mg Calcitriol (Rocaltrol) 0.25 mcg PO DAILY [facility] Last Admin: 09/07/17 10:46 Dose: 0.25 mcg Calcium Acetate (Phoslo) 667 mg PO TIDCC [facility] Last Admin: 09/07/17 16:30 Dose: 667 mg Carvedilol (Coreg) 6.25 mg PO BID [facility] Last Admin: 09/07/17 17:17 Dose: 6.25 mg Cholestyramine Resin (Prevalite) 4 gm PO BID [facility] Last Admin: 09/07/17 17:19 Dose: 4 gm Clonidine HCl (Catapres) 0.2 mg PO Q12H [facility] Last Admin: 09/07/17 12:39 Dose: 0.2 mg Dextrose (Dextrose 50% Inj) 0 ml IV STAT PRN; Protocol PRN Reason: Hypoglycemia Protocol Dextrose (Glutose 15) 0 gm PO ONCE PRN; Protocol PRN Reason: Hypoglycemia Protocol Epoetin Chuy (Procrit) 10,000 unit IV MWF [facility] Last Admin: 09/05/17 17:54 Dose: 10,000 unit Famotidine (Pepcid) 20 mg PO BID [facility] Last Admin: 09/07/17 17:17 Dose: 20 mg Glucagon (Glucagen Diagnostic Kit) 0 mg IM STAT PRN; Protocol PRN Reason: Hypoglycemia Protocol Dextrose (Dextrose 5% In Water 1000 Ml) 1,000 mls @ 0 mls/hr IV .Q0M PRN; Protocol; Per Protocol PRN Reason: Hypoglycemia Protocol Insulin Human Regular (Novolin R) 0 unit SC ACHS [facility] PRN Reason: Protocol Last Admin: 09/07/17 16:00 Dose: Not Given Oseltamivir Phosphate (Tamiflu Susp) 30 mg PO Q24H [facility] PRN Reason: Protocol Last Admin: 09/07/17 17:18 Dose: 30 mg - Labs Labs: 09/07/17 07:38 09/07/17 07:38 PT 10.6 SECONDS (9.7-12.2) 09/05/17 08:00 INR 1.0 09/05/17 08:00 APTT 31 SECONDS (21-34) 09/05/17 08:00 Attending/Attestation - Attestation I have personally seen and examined this patient.: Yes I have fully participated in the care of the patient.: Yes I have reviewed all pertinent clinical information, including history, physical exam and plan: Yes Notes (Text): 09/07/17 20:28 Patient was seen and examined at 12:15 PM Also on ROS: Chills NO dysphagia/odynophagia/soreness in throat: he stated that whenever he gets the chills, "it's always my tonsils and I get antibiotic and I feel better" NO chest pain NO cough/sob/wheezing NO abdominal pain NO joint pain NO muscle aches but feels tired Has NOT moved bowels since Friday: it is normal for him not to move his bowels for 2 to 3 days. He also has not eaten much because he does not find the hospital food appetizing Right Shoulder pain has resolved NO n/v NO burning/pain with urination NO headaches NO new changes in vision NO new changes in hearing Also on Exam: HEENT: NO lymphadenopathy, Pharynx is nonerythematous and without exudate Respiratory: faint end inspiratory rales GI: Soft, NT, ND, BSx4, NO guarding/rebound tenderness He is NOT on any anticoagulation secondary to the history of anemia and the low HgB/Hct Colace has been added for the Constipation. 1 unit of PRBC ordered for 10 PM considering the tachycardia (which also could be secondary to the fever) For the Fever: Rapid Strep culture is negative Rapid Flu is negative Chest X Ray 09/06/17 night did not show any consolidation. The rales on exam could be secondary to mild pulmonary congestion F/U Blood Cultures F/U Urine Cultures Considering the fever, the feeling of fatigue, and the fact that Rapid Flu Test can be falsely negative 25% of the time, Tamiflu 30 mg PO 1x/day (renal dosing) was ordered and should be continued for 5 days with stop date 09/11/17. Patient is for AV Fistula placement on 09/10/17 with Vascular Surgery Team. Medicine Team please follow up the Blood and Urine Cultures and make sure HgB/ Hct are stable before clearing patient for the AV Fistula placement. Saurabh Anaya D.O.
[2017-09-07] MEDS: (Novolin R) Insulin Human Regular 100 units/ml vial SC SCH ×4 (07:18→21:14)
[2017-09-07] MEDS: Oseltamivir 6 MG/ML PO SCH (07:32)
[2017-09-07 07:52] LABS: BASO # 0.1 K/uL (0.0-0.2); BASO % 0.5 % (0.0-2.0); EOS # 0.8 K/uL (0.0-0.7); EOS % 7.5 % (0.0-4.0); HEMOGLOBIN 7.2 g/dL (12.0-18.0); LYMPH # 1.4 K/uL (1.0-4.3); LYMPH % 13.3 % (20.0-40.0); MEAN CELL VOLUME 81.8 fL (80.0-94.0); MEAN CORPUSCULAR HEMOGLOBIN 27.4 pg (27.0-31.0); MEAN CORPUSCULAR HGB CONC 33.4 g/dL (33.0-37.0); MEAN PLATELET VOLUME 7.9 fL (7.2-11.7); MONO # 0.9 K/uL (0.0-0.8); MONO % 8.6 % (0.0-10.0); NEUT # 7.5 K/uL (1.8-7.0); NEUT % 70.1 % (50.0-75.0); NRBC % 0.1 % (0.0-2.0); RBC 2.62 Mil/uL (4.40-5.90); RED CELL DISTRIBUTION WIDTH 19.1 % (11.5-14.5); WHITE BLOOD COUNT 10.7 K/uL (4.8-10.8)
--- NOTE | 2017-09-07 08:14 | RAD ---
Chest x-ray single frontal view History: Fever. Comparison: 09/05/2017 Findings: Right central venous catheter tip extending into the right atrium. Mild venous congestion. Right hilar prominence. Upper lobe granulomatous changes. Heart size within normal limits. Calcification at the aortic knob. Degenerative changes in the spine and shoulders. Impression: Right central venous catheter tip extending into the right atrium. Mild venous congestion. Right hilar prominence. Upper lobe granulomatous changes. Heart size within normal limits. Calcification at the aortic knob.
[2017-09-07 08:18] LABS: ALB/GLOB RATIO 0.9 (1.0-2.1); ALBUMIN 3.3 g/dL (3.5-5.0); CALCIUM 8.1 mg/dl (8.6-10.4)
[2017-09-07] MEDS ORDERED: Pneumococcal 23-Valent Vaccine IM ONE (10:00)
[2017-09-07] MEDS: Cholestyramine 4 gm/5.5 gm UD Packet PO SCH ×2 (10:46→17:19)
[2017-09-07] MEDS ORDERED: Oseltamivir 6 MG/ML PO SCH ×2 (15:00→18:00)
[2017-09-08] MEDS: Oseltamivir 6 MG/ML PO SCH (06:00)
[2017-09-08] MEDS: (Novolin R) Insulin Human Regular 100 units/ml vial SC SCH ×4 (07:08→22:40)
[2017-09-08 07:30] LABS: BASO % 0.5 % (0.0-2.0); EOS # 0.5 K/uL (0.0-0.7); EOS % 5.9 % (0.0-4.0); HEMOGLOBIN 7.2 g/dL (12.0-18.0); LYMPH # 1.7 K/uL (1.0-4.3); MEAN CELL VOLUME 84.1 fL (80.0-94.0); MEAN CORPUSCULAR HEMOGLOBIN 28.6 pg (27.0-31.0); MEAN PLATELET VOLUME 8.2 fL (7.2-11.7); MONO # 0.7 K/uL (0.0-0.8); MONO % 7.5 % (0.0-10.0); NEUT # 6.4 K/uL (1.8-7.0); NEUT % 68.1 % (50.0-75.0); RBC 2.5 Mil/uL (4.40-5.90); RED CELL DISTRIBUTION WIDTH 18.9 % (11.5-14.5); WHITE BLOOD COUNT 9.3 K/uL (4.8-10.8)
[2017-09-08 08:15] LABS: ALB/GLOB RATIO 0.9 (1.0-2.1); CALCIUM 8.1 mg/dl (8.6-10.4)
[2017-09-08] MEDS: Cholestyramine 4 gm/5.5 gm UD Packet PO SCH (09:00)
[2017-09-08 10:21] LABS: BASO % 0.4 % (0.0-2.0); EOS # 0.6 K/uL (0.0-0.7); EOS % 6.2 % (0.0-4.0); HEMOGLOBIN 7.2 g/dL (12.0-18.0); LYMPH # 1.4 K/uL (1.0-4.3); LYMPH % 13.7 % (20.0-40.0); MEAN CELL VOLUME 84.8 fL (80.0-94.0); MEAN CORPUSCULAR HEMOGLOBIN 28.3 pg (27.0-31.0); MEAN CORPUSCULAR HGB CONC 33.3 g/dL (33.0-37.0); MEAN PLATELET VOLUME 8.2 fL (7.2-11.7); MONO # 0.6 K/uL (0.0-0.8); MONO % 5.8 % (0.0-10.0); NEUT # 7.4 K/uL (1.8-7.0); NEUT % 73.9 % (50.0-75.0); RBC 2.54 Mil/uL (4.40-5.90); RED CELL DISTRIBUTION WIDTH 18.7 % (11.5-14.5); WHITE BLOOD COUNT 9.9 K/uL (4.8-10.8)
[2017-09-08] MEDS: Epoetin Alfa 10,000 unit/ml Dialysis IV SCH (10:38)
--- NOTE | 2017-09-08 12:31 | CP.PCM.PN ---
Subjective - Date & Time of Evaluation Date of Evaluation: 09/08/17 Time of Evaluation: 12:28 - Subjective Subjective: Seen at dialysis BP lower had severe epistaxis s/p 1 unit prbcs blood transfusion' Tolerating mild UF with HD c/o knee pain - gouty attack as per pt Objective - Vital Signs/Intake and Output Vital Signs (last 24 hours): Temp Pulse Resp BP Pulse Ox 97.6 F 74 16 110/66 97 09/08/17 12:16 09/08/17 12:16 09/08/17 12:16 09/08/17 12:16 09/08/17 09:35 Intake and Output: 09/08/17 09/08/17 06:59 18:59 Intake Total 995 0 Output Total 340 Balance 655 0 - Medications Medications: Current Medications Acetaminophen (Tylenol 325mg Tab) 650 mg PO Q6 PRN PRN Reason: Pain, moderate (4-7) Last Admin: 09/07/17 22:52 Dose: 650 mg Acetaminophen (Tylenol 325mg Tab) 650 mg PO Q6 PRN PRN Reason: Fever >100.4 F Acetaminophen (Tylenol 325mg Tab) 650 mg PO ONCE [facility] Allopurinol (Zyloprim) 100 mg PO DAILY [facility] Last Admin: 09/08/17 09:00 Dose: 100 mg Amlodipine Besylate (Norvasc) 5 mg PO DAILY [facility] Last Admin: 09/08/17 09:03 Dose: Not Given Calcitriol (Rocaltrol) 0.25 mcg PO DAILY [facility] Last Admin: 09/08/17 09:05 Dose: 0.25 mcg Calcium Acetate (Phoslo) 667 mg PO TIDCC [facility] Last Admin: 09/08/17 08:32 Dose: 667 mg Carvedilol (Coreg) 6.25 mg PO BID [facility] Last Admin: 09/08/17 09:02 Dose: Not Given Cholestyramine Resin (Prevalite) 4 gm PO BID [facility] Last Admin: 09/08/17 09:00 Dose: 4 gm Clonidine HCl (Catapres) 0.2 mg PO Q12H [facility] Last Admin: 09/08/17 00:58 Dose: Not Given Dextrose (Dextrose 50% Inj) 0 ml IV STAT PRN; Protocol PRN Reason: Hypoglycemia Protocol Dextrose (Glutose 15) 0 gm PO ONCE PRN; Protocol PRN Reason: Hypoglycemia Protocol Docusate Sodium (Colace) 100 mg PO BID [facility] Last Admin: 09/08/17 09:00 Dose: 100 mg Epoetin Chuy (Procrit) 10,000 unit IV MWF [facility] Last Admin: 09/08/17 10:38 Dose: 10,000 unit Famotidine (Pepcid) 20 mg PO BID [facility] Last Admin: 09/08/17 09:00 Dose: 20 mg Glucagon (Glucagen Diagnostic Kit) 0 mg IM STAT PRN; Protocol PRN Reason: Hypoglycemia Protocol Dextrose (Dextrose 5% In Water 1000 Ml) 1,000 mls @ 0 mls/hr IV .Q0M PRN; Protocol; Per Protocol PRN Reason: Hypoglycemia Protocol Insulin Human Regular (Novolin R) 0 unit SC ACHS [facility] PRN Reason: Protocol Last Admin: 09/08/17 07:08 Dose: Not Given Oseltamivir Phosphate (Tamiflu Susp) 30 mg PO Q24H [facility] PRN Reason: Protocol Stop: 09/11/17 06:45 Last Admin: 09/08/17 06:00 Dose: 30 mg - Labs Labs: 09/08/17 10:10 09/08/17 07:22 PT 10.6 SECONDS (9.7-12.2) 09/05/17 08:00 INR 1.0 09/05/17 08:00 APTT 31 SECONDS (21-34) 09/05/17 08:00 - Constitutional Appears: In Acute Distress, Chronically Ill - Head Exam Head Exam: ATRAUMATIC, NORMAL INSPECTION - Eye Exam Eye Exam: EOMI, Normal appearance - Neck Exam Neck Exam: Normal Inspection. absent: Tenderness - Respiratory Exam Respiratory Exam: Clear to Ausculation Bilateral, NORMAL BREATHING PATTERN - Cardiovascular Exam Cardiovascular Exam: REGULAR RHYTHM, +S1 - GI/Abdominal Exam GI & Abdominal Exam: Soft. absent: Tenderness - Extremities Exam Extremities Exam: Normal Inspection, Tenderness - Neurological Exam Neurological Exam: Awake, CN II-XII Intact - Skin Skin Exam: Dry, Warm Assessment and Plan (1) ESRD (end stage renal disease) Status: Acute (2) Type 2 diabetes mellitus with diabetic nephropathy Status: Acute (3) HTN (hypertension) Status: Acute (4) Rheumatoid arthritis Status: Acute (5) Hyperkalemia Status: Acute (6) Acute gout Status: Acute - Assessment and Plan (Free Text) Plan: treat gout repeat blood transfusion for severe epistaxis decreased BP meds await outpt HD placement
--- NOTE | 2017-09-08 12:32 | CP.PCM.PN ---
Subjective - Date & Time of Evaluation Date of Evaluation: 09/08/17 Time of Evaluation: 08:45 - Subjective Subjective: Medicine progress note ( Dr. Javier's service) Patient was seen and examined at bedside. Patient reports that he is doing well with no complaints during the encounter. Patient denied chest pain, SOB, palpitations, nausea, vomiting, fever or chills. Patient was seen again post HD and at this time patient was complaining of chills but no subjective fever. Objective - Vital Signs/Intake and Output Vital Signs (last 24 hours): Temp Pulse Resp BP Pulse Ox 97.6 F 74 16 110/66 97 09/08/17 12:16 09/08/17 12:16 09/08/17 12:16 09/08/17 12:16 09/08/17 09:35 Intake and Output: 09/08/17 09/08/17 06:59 18:59 Intake Total 995 0 Output Total 340 Balance 655 0 - Medications Medications: Current Medications Acetaminophen (Tylenol 325mg Tab) 650 mg PO Q6 PRN PRN Reason: Pain, moderate (4-7) Last Admin: 09/07/17 22:52 Dose: 650 mg Acetaminophen (Tylenol 325mg Tab) 650 mg PO Q6 PRN PRN Reason: Fever >100.4 F Acetaminophen (Tylenol 325mg Tab) 650 mg PO ONCE [facility] Allopurinol (Zyloprim) 100 mg PO DAILY [facility] Last Admin: 09/08/17 09:00 Dose: 100 mg Amlodipine Besylate (Norvasc) 5 mg PO DAILY [facility] Last Admin: 09/08/17 09:03 Dose: Not Given Calcitriol (Rocaltrol) 0.25 mcg PO DAILY [facility] Last Admin: 09/08/17 09:05 Dose: 0.25 mcg Calcium Acetate (Phoslo) 667 mg PO TIDCC [facility] Last Admin: 09/08/17 08:32 Dose: 667 mg Carvedilol (Coreg) 6.25 mg PO BID [facility] Last Admin: 09/08/17 09:02 Dose: Not Given Cholestyramine Resin (Prevalite) 4 gm PO BID [facility] Last Admin: 09/08/17 09:00 Dose: 4 gm Clonidine HCl (Catapres) 0.2 mg PO Q12H [facility] Last Admin: 09/08/17 00:58 Dose: Not Given Dextrose (Dextrose 50% Inj) 0 ml IV STAT PRN; Protocol PRN Reason: Hypoglycemia Protocol Dextrose (Glutose 15) 0 gm PO ONCE PRN; Protocol PRN Reason: Hypoglycemia Protocol Docusate Sodium (Colace) 100 mg PO BID [facility] Last Admin: 09/08/17 09:00 Dose: 100 mg Epoetin Chuy (Procrit) 10,000 unit IV MWF [facility] Last Admin: 09/08/17 10:38 Dose: 10,000 unit Famotidine (Pepcid) 20 mg PO BID [facility] Last Admin: 09/08/17 09:00 Dose: 20 mg Glucagon (Glucagen Diagnostic Kit) 0 mg IM STAT PRN; Protocol PRN Reason: Hypoglycemia Protocol Dextrose (Dextrose 5% In Water 1000 Ml) 1,000 mls @ 0 mls/hr IV .Q0M PRN; Protocol; Per Protocol PRN Reason: Hypoglycemia Protocol Insulin Human Regular (Novolin R) 0 unit SC ACHS [facility] PRN Reason: Protocol Last Admin: 09/08/17 07:08 Dose: Not Given Oseltamivir Phosphate (Tamiflu Susp) 30 mg PO Q24H [facility] PRN Reason: Protocol Stop: 09/11/17 06:45 Last Admin: 09/08/17 06:00 Dose: 30 mg - Labs Labs: 09/08/17 10:10 09/08/17 07:22 PT 10.6 SECONDS (9.7-12.2) 09/05/17 08:00 INR 1.0 09/05/17 08:00 APTT 31 SECONDS (21-34) 09/05/17 08:00 - Constitutional Appears: Well, No Acute Distress - Head Exam Head Exam: ATRAUMATIC, NORMAL INSPECTION - Eye Exam Eye Exam: EOMI - ENT Exam ENT Exam: Mucous Membranes Moist - Neck Exam Additional comments: Right IJ permacath in place for temporary HD access - Respiratory Exam Respiratory Exam: Clear to Ausculation Bilateral, NORMAL BREATHING PATTERN. absent: Rhonchi, Wheezes - Cardiovascular Exam Cardiovascular Exam: REGULAR RHYTHM, +S1, +S2. absent: Murmur - GI/Abdominal Exam GI & Abdominal Exam: Soft, Normal Bowel Sounds. absent: Distended, Guarding, Rigid, Tenderness - Extremities Exam Extremities Exam: Normal Inspection - Neurological Exam Neurological Exam: Alert, Awake, Oriented x3 - Psychiatric Exam Psychiatric exam: Normal Affect - Skin Skin Exam: Normal Color Assessment and Plan (1) ESRD on hemodialysis Assessment & Plan: New onset Consultation: [employer], Dr. Lezama--> Help appreciated * HD scheduled MWF General surgery, Dr. Cervantes---> Help appreciated * Placement of Right IJ permatcath * Plans for AV fistula placement on 09/10/17 Medications: - Calcitriol 0.25mcg PO QD - Sodium Bicarbonate 650mg PO BID - Procrit 10,000u IV MWF Status: Acute (2) Fever Assessment & Plan: - Tmax 102.2 - Tylenol 650mg PO Q6H PRN - Zosyn 2.25gm IV once (09/08/17) - Vanco 1gm IV once (09/08/17) -Tamiflu 30mg PO daily, finish dose 09/11/17 Labs: Rapid Influenza negative (25% false negative) BC (09/06/17): No growth, f/u repeat BC (09/08/17) Urine culture (09/04 and 09/07): Negative Throat culture (09/07): Negative CXR (09/06/17): Right central venous catheter tip extending into the right atrium. Mild venous congestion. Right hilar prominence. Upper lobe granulomatous changes. Heart size within normal limits. Calcification at the aortic knob. Status: Acute (3) Anemia of chronic disease Assessment & Plan: 2 units of PRBC Monitor H/H with am labs - Iron NORMAL, TIBC NORMAL, % Saturation NORMAL, Ferritin ELEVATED - Hep panel: Hep Bs Antibody Positive Medication: * Procrit 10,000 unit IVF, MWF on HD Status: Acute (4) Acute gout Assessment & Plan: Prednisone 30mg PO daily Status: Acute (5) HTN (hypertension) Assessment & Plan: Controlled with medication * Coreg 4mg PO BID * Clonidine 0.1mg PO Q12H Status: Acute (6) Hyperlipidemia Assessment & Plan: Prevalite 4gm PO BID Status: Acute (7) Diabetes mellitus Assessment & Plan: -ISS- Low dose - Accucheck - Hypoglycemia protocol Status: Acute (8) Epistaxis Assessment & Plan: Petroleum ointment Consultation, Dr. Jose---> Help appreciated Monitor H/H with labs Status: Acute (9) Prophylactic measure Assessment & Plan: - Pepcid 20mg bid - heparin on hold due to epistaxis - SCDs All plans and management discussed with Dr. Javier Status: Acute
[2017-09-08] MEDS ORDERED: Piperacill/Tazo 2.25gm in Dex 2.25 GM/50 ML BAG IVPB STA (16:51)
[2017-09-08] MEDS ORDERED: Vancomycin 1 gm/NS 200 ml 1 GM/200 ML BAG IVPB SCH (17:00)
[2017-09-08] MEDS ORDERED: Petrolatum Oint Foilpak (5 gm) TOP PRN (19:33)
[2017-09-09] MEDS: Oseltamivir 6 MG/ML PO SCH (06:00)
[2017-09-09 07:39] LABS: BASO # 0.1 K/uL (0.0-0.2); BASO % 0.5 % (0.0-2.0); LYMPH # 1.4 K/uL (1.0-4.3); LYMPH % 13.8 % (20.0-40.0); MEAN CELL VOLUME 84.5 fL (80.0-94.0); MEAN CORPUSCULAR HGB CONC 34.3 g/dL (33.0-37.0); MEAN PLATELET VOLUME 8.5 fL (7.2-11.7); MONO # 0.9 K/uL (0.0-0.8); MONO % 8.9 % (0.0-10.0); NEUT # 7.6 K/uL (1.8-7.0); NEUT % 76.8 % (50.0-75.0); NRBC % 0.3 % (0.0-2.0); RBC 3.21 Mil/uL (4.40-5.90); WHITE BLOOD COUNT 9.8 K/uL (4.8-10.8)
[2017-09-09 07:45] LABS: ALB/GLOB RATIO 0.8 (1.0-2.1); ALBUMIN 3.3 g/dL (3.5-5.0); CALCIUM 8.1 mg/dl (8.6-10.4)
[2017-09-09 07:52] LABS: HEMOGLOBIN 9.3 g/dL (12.0-18.0)
[2017-09-09] MEDS: (Novolin R) Insulin Human Regular 100 units/ml vial SC SCH ×4 (08:04→22:55)
[2017-09-09] MEDS: Cholestyramine 4 gm/5.5 gm UD Packet PO SCH (10:08)
[2017-09-09] MEDS ORDERED: Piperacill/Tazo 2.25gm in Dex 2.25 GM/50 ML BAG IVPB SCH (11:30)
--- NOTE | 2017-09-09 11:50 | CP.PCM.PN ---
Subjective - Date & Time of Evaluation Date of Evaluation: 09/09/17 Time of Evaluation: 11:50 - Subjective Subjective: seen and examined s/p blood transfusion awaiting avf today hd yesterday unremarkable still w/ some epistaxis, improved denies any nausea vomiting diarrhea sob cp fevers chills rash dizziness headache weakness numbness Objective - Vital Signs/Intake and Output Vital Signs (last 24 hours): Temp Pulse Resp BP Pulse Ox 97.9 F 77 20 158/82 H 98 09/09/17 07:15 09/09/17 07:15 09/09/17 07:15 09/09/17 07:15 09/09/17 07:15 Intake and Output: 09/09/17 09/09/17 06:59 18:59 Intake Total 550 Output Total 850 Balance -300 - Medications Medications: Current Medications Acetaminophen (Tylenol 325mg Tab) 650 mg PO Q6 PRN PRN Reason: Pain, moderate (4-7) Last Admin: 09/07/17 22:52 Dose: 650 mg Acetaminophen (Tylenol 325mg Tab) 650 mg PO Q6 PRN PRN Reason: Fever >100.4 F Last Admin: 09/08/17 17:09 Dose: 650 mg Acetaminophen (Tylenol 325mg Tab) 650 mg PO ONCE [facility] Calcitriol (Rocaltrol) 0.25 mcg PO DAILY [facility] Last Admin: 09/09/17 10:08 Dose: Not Given Calcium Acetate (Phoslo) 667 mg PO TIDCC [facility] Last Admin: 09/09/17 08:40 Dose: Not Given Carvedilol (Coreg) 6.25 mg PO BID [facility] Last Admin: 09/09/17 10:08 Dose: Not Given Cholestyramine Resin (Prevalite) 4 gm PO BID [facility] Last Admin: 09/09/17 10:08 Dose: Not Given Clonidine HCl (Catapres) 0.1 mg PO Q12 [facility] Last Admin: 09/09/17 10:08 Dose: Not Given Colchicine (Colocrys) 0.6 mg PO DAILY [facility] Last Admin: 09/09/17 10:08 Dose: Not Given Dextrose (Dextrose 50% Inj) 0 ml IV STAT PRN; Protocol PRN Reason: Hypoglycemia Protocol Dextrose (Glutose 15) 0 gm PO ONCE PRN; Protocol PRN Reason: Hypoglycemia Protocol Docusate Sodium (Colace) 100 mg PO BID [facility] Last Admin: 09/09/17 10:08 Dose: Not Given Emollient Ointment (Vaseline Oint) 5 gm TOP Q4 PRN PRN Reason: Dry skin Epoetin Chuy (Procrit) 10,000 unit IV MWF [facility] Last Admin: 09/08/17 10:38 Dose: 10,000 unit Famotidine (Pepcid) 20 mg PO DAILY [facility] Last Admin: 09/09/17 10:08 Dose: Not Given Glucagon (Glucagen Diagnostic Kit) 0 mg IM STAT PRN; Protocol PRN Reason: Hypoglycemia Protocol Dextrose (Dextrose 5% In Water 1000 Ml) 1,000 mls @ 0 mls/hr IV .Q0M PRN; Protocol; Per Protocol PRN Reason: Hypoglycemia Protocol Vancomycin HCl 1 gm/ Sodium (Chloride) 250 mls @ 166.7 mls/hr IVPB Q24H [facility] PRN Reason: Protocol Piperacillin Sod/Tazobactam Sod (Zosyn 2.25 Gm Iv Premix) 2.25 gm in 50 mls @ 100 mls/hr IVPB Q6H [facility] PRN Reason: Protocol Insulin Human Regular (Novolin R) 0 unit SC ACHS [facility] PRN Reason: Protocol Last Admin: 09/09/17 08:04 Dose: Not Given Oseltamivir Phosphate (Tamiflu Susp) 30 mg PO Q24H [facility] PRN Reason: Protocol Stop: 09/11/17 06:45 Last Admin: 09/09/17 06:00 Dose: 30 mg Prednisone (Prednisone Tab) 30 mg PO DAILY [facility] Stop: 09/11/17 14:00 Last Admin: 09/09/17 10:08 Dose: Not Given - Labs Labs: 09/09/17 07:21 09/09/17 07:21 PT 10.6 SECONDS (9.7-12.2) 09/05/17 08:00 INR 1.0 09/05/17 08:00 APTT 31 SECONDS (21-34) 09/05/17 08:00 - Constitutional Appears: Non-toxic, No Acute Distress - Head Exam Head Exam: NORMAL INSPECTION, NORMOCEPHALIC - Eye Exam Eye Exam: Normal appearance Pupil Exam: PERRL - ENT Exam ENT Exam: Mucous Membranes Moist, Normal Exam - Neck Exam Neck Exam: Full ROM, Normal Inspection - Respiratory Exam Respiratory Exam: Clear to Ausculation Bilateral, NORMAL BREATHING PATTERN - Cardiovascular Exam Cardiovascular Exam: REGULAR RHYTHM, RRR - GI/Abdominal Exam GI & Abdominal Exam: Distended, Soft - Extremities Exam Extremities Exam: Full ROM, Normal Inspection - Neurological Exam Neurological Exam: Alert, Awake, Oriented x3 - Psychiatric Exam Psychiatric exam: Normal Affect, Normal Mood - Skin Skin Exam: Dry, Warm Assessment and Plan (1) Acute gout Status: Acute (2) Anemia of chronic disease Status: Acute (3) ESRD (end stage renal disease) Status: Acute (4) Epistaxis Status: Acute (5) HTN (hypertension) Status: Acute - Assessment and Plan (Free Text) Assessment: maintain hd mwf treatment for gout avf today follow hgb
--- NOTE | 2017-09-09 12:57 | CARD ---
APPROVED REPORT EKG Measurement Heart [id number] <Conclusion> Normal sinus rhythm Moderate voltage criteria for LVH, may be normal variant Borderline ECG
[2017-09-09] MEDS ORDERED: Vancomycin 1 gm/NS 200 ml 1 GM/200 ML BAG IVPB SCH (13:00)
--- NOTE | 2017-09-09 15:20 | CP.PCM.PN ---
Subjective - Date & Time of Evaluation Date of Evaluation: 09/09/17 Time of Evaluation: 07:40 - Subjective Subjective: Medicine progress note ( Dr. Javier's service) Patient was seen and examined at bedside. Patient reports that he is doing well with improving symptom of chills. Patient denies chest pain, SOB, palpitations, nausea, vomiting, fever or chills. Patient is aware that he will be having AV fistula today at 1pm. Objective - Vital Signs/Intake and Output Vital Signs (last 24 hours): Temp Pulse Resp BP Pulse Ox 97.9 F 77 20 158/82 H 98 09/09/17 07:15 09/09/17 07:15 09/09/17 07:15 09/09/17 07:15 09/09/17 07:15 Intake and Output: 09/09/17 09/09/17 06:59 18:59 Intake Total 550 250 Output Total 850 Balance -300 250 - Medications Medications: Current Medications Acetaminophen (Tylenol 325mg Tab) 650 mg PO Q6 PRN PRN Reason: Pain, moderate (4-7) Last Admin: 09/07/17 22:52 Dose: 650 mg Acetaminophen (Tylenol 325mg Tab) 650 mg PO Q6 PRN PRN Reason: Fever >100.4 F Last Admin: 09/08/17 17:09 Dose: 650 mg Acetaminophen (Tylenol 325mg Tab) 650 mg PO ONCE [facility] Calcitriol (Rocaltrol) 0.25 mcg PO DAILY [facility] Last Admin: 09/09/17 10:08 Dose: Not Given Calcium Acetate (Phoslo) 667 mg PO TIDCC [facility] Last Admin: 09/09/17 12:59 Dose: Not Given Carvedilol (Coreg) 6.25 mg PO BID [facility] Last Admin: 09/09/17 10:08 Dose: Not Given Cholestyramine Resin (Prevalite) 4 gm PO BID [facility] Last Admin: 09/09/17 10:08 Dose: Not Given Clonidine HCl (Catapres) 0.1 mg PO Q12 [facility] Last Admin: 09/09/17 10:08 Dose: Not Given Colchicine (Colocrys) 0.6 mg PO DAILY [facility] Last Admin: 09/09/17 10:08 Dose: Not Given Dextrose (Dextrose 50% Inj) 0 ml IV STAT PRN; Protocol PRN Reason: Hypoglycemia Protocol Dextrose (Glutose 15) 0 gm PO ONCE PRN; Protocol PRN Reason: Hypoglycemia Protocol Docusate Sodium (Colace) 100 mg PO BID [facility] Last Admin: 09/09/17 10:08 Dose: Not Given Emollient Ointment (Vaseline Oint) 5 gm TOP Q4 PRN PRN Reason: Dry skin Epoetin Chuy (Procrit) 10,000 unit IV MWF [facility] Last Admin: 09/08/17 10:38 Dose: 10,000 unit Famotidine (Pepcid) 20 mg PO DAILY [facility] Last Admin: 09/09/17 10:08 Dose: Not Given Glucagon (Glucagen Diagnostic Kit) 0 mg IM STAT PRN; Protocol PRN Reason: Hypoglycemia Protocol Dextrose (Dextrose 5% In Water 1000 Ml) 1,000 mls @ 0 mls/hr IV .Q0M PRN; Protocol; Per Protocol PRN Reason: Hypoglycemia Protocol Piperacillin Sod/Tazobactam Sod (Zosyn 2.25 Gm Iv Premix) 2.25 gm in 50 mls @ 100 mls/hr IVPB Q6H [facility] PRN Reason: Protocol Last Admin: 09/09/17 12:00 Dose: 100 mls/hr Vancomycin/Sodium Chloride (Vancomycin 1 Gm/Ns 200 Ml) 1 gm in 200 mls @ 133.333 mls/hr IVPB Q24H [facility] PRN Reason: Protocol Stop: 09/14/17 13:01 Last Admin: 09/09/17 13:02 Dose: 133.333 mls/hr Insulin Human Regular (Novolin R) 0 unit SC ACHS [facility] PRN Reason: Protocol Last Admin: 09/09/17 12:59 Dose: Not Given Oseltamivir Phosphate (Tamiflu Susp) 30 mg PO Q24H [facility] PRN Reason: Protocol Stop: 09/11/17 06:45 Last Admin: 09/09/17 06:00 Dose: 30 mg Prednisone (Prednisone Tab) 30 mg PO DAILY [facility] Stop: 09/11/17 14:00 Last Admin: 09/09/17 10:08 Dose: Not Given - Labs Labs: 09/09/17 07:21 09/09/17 07:21 PT 10.6 SECONDS (9.7-12.2) 09/05/17 08:00 INR 1.0 09/05/17 08:00 APTT 31 SECONDS (21-34) 09/05/17 08:00 - Constitutional Appears: Well, No Acute Distress - Head Exam Head Exam: ATRAUMATIC, NORMAL INSPECTION - Eye Exam Eye Exam: EOMI - ENT Exam ENT Exam: Mucous Membranes Moist - Neck Exam Additional comments: Right permacath in place - Respiratory Exam Respiratory Exam: Clear to Ausculation Bilateral, NORMAL BREATHING PATTERN. absent: Rhonchi, Wheezes, Respiratory Distress - Cardiovascular Exam Cardiovascular Exam: REGULAR RHYTHM, +S1, +S2 - GI/Abdominal Exam GI & Abdominal Exam: Soft, Normal Bowel Sounds. absent: Distended, Firm, Guarding, Rigid, Tenderness - Extremities Exam Extremities Exam: Normal Inspection. 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 Lezama--> Help appreciated * HD scheduled MWF General surgery, Dr. Cervantes---> Help appreciated * Placement of Right IJ permatcath * Plans for AV fistula placement on today, 09/09/17 Medications: - Calcitriol 0.25mcg PO QD - Phoslo 667mg PO TIDCC - Sodium Bicarbonate 650mg PO BID - Procrit 10,000u IV MWF Status: Acute (2) Fever Assessment & Plan: - Tmax 102.2 - Tylenol 650mg PO Q6H PRN - Zosyn 2.25gm IV once (09/08/17)---> Q8H (09/09/17) - Vanco 1gm IV once (09/08/17)---> Daily (09/09/17) -Tamiflu 30mg PO daily, finish dose 09/11/17 Labs: Rapid Influenza negative (25% false negative) BC (09/06/17): No growth, f/u repeat BC (09/08/17) Urine culture (09/04 and 09/07): Negative Throat culture (09/07): Negative CXR (09/06/17): Right central venous catheter tip extending into the right atrium. Mild venous congestion. Right hilar prominence. Upper lobe granulomatous changes. Heart size within normal limits. Calcification at the aortic knob. Status: Acute (3) Anemia of chronic disease Assessment & Plan: H/H stable 2 units of PRBC administered Monitor H/H with am labs - Iron NORMAL, TIBC NORMAL, % Saturation NORMAL, Ferritin ELEVATED - Hep panel: Hep Bs Antibody Positive Medication: * Procrit 10,000 unit IVF, MWF on HD Status: Acute (4) Acute gout Assessment & Plan: Prednisone 30mg PO daily Status: Acute (5) HTN (hypertension) Assessment & Plan: Controlled with medication * Coreg 4mg PO BID * Clonidine 0.1mg PO Q12H Status: Chronic (6) Hyperlipidemia Assessment & Plan: Prevalite 4gm PO BID Status: Chronic (7) Diabetes mellitus Assessment & Plan: -ISS- Low dose - Accucheck - Hypoglycemia protocol Status: Chronic (8) Epistaxis Assessment & Plan: H/H stable Petroleum ointment Consultation, Dr. Jose---> Help appreciated Continue to monitor H/H with labs Status: Acute (9) Prophylactic measure Assessment & Plan: - Pepcid 20mg bid - heparin on hold due to epistaxis - SCDs All plans and management discussed with Dr. Javier Status: Acute
[2017-09-09] MEDS ORDERED: HEPARIN-NS 5,000 UNITS/500 ML 5,000 UNIT/500 ML BAG IV ONE (15:22)
[2017-09-09] MEDS ORDERED: HYDROmorphone 0.5 mg/0.5 ml ISec IVP PRN (17:46)
--- NOTE | 2017-09-09 17:46 | PCM.SURG1 ---
Surgeon's Initial Post Op Note - Surgeon's Notes Surgeon: Dr. Cervantes Set And Exhibit Designer: Dr. Metcalf PGY-3, Chavez Overton MS3 Type of Anesthesia: General Endo Anesthesia Administered By: Dr. Marinelli Pre-Operative Diagnosis: End Stage Renal Disease Operative Findings: See operative report Post-Operative Diagnosis: Same Operation Performed: L arm Brachio-Cephalic AVF creation Specimen/Specimens Removed: none Estimated Blood Loss: EBL {In ML}: 10 Blood Products Given: N/A Drains Used: No Drains Post-Op Condition: Good Date of Surgery/Procedure: 09/09/17 Time of Surgery/Procedure: 17:46
[2017-09-09] MEDS: Piperacill/Tazo 2.25gm in Dex 2.25 GM/50 ML BAG IVPB SCH (20:28)
--- NOTE | 2017-09-09 21:32 | CON ---
DATE: 09/09/2017 REASON FOR CONSULTATION: Epistaxis. HISTORY: This is a 56-year-old male who had one episode of bleeding yesterday on the left side, it was constant, mild in intensity, stopped by itself. There is no nasal pain. There is some congestion noted over the past couple of days. PAST MEDICAL HISTORY: As noted in the chart by me. MEDICATIONS: As noted in the chart by me. ALLERGIES: NO KNOWN DRUG ALLERGIES. PHYSICAL EXAMINATION: HEENT: Head atraumatic, normocephalic. FACE: Good facial movements bilaterally. CONSTITUTIONAL: Well fed, well nourished. COMMUNICATION: Communicates well and appropriately. EXTERNAL NOSE AND EARS: No masses. No lesions. No erythema. No edema. INTERNAL NOSE: Blood clot noted on the left nasal cavity. No masses. No lesions noted. However, the view is obstructed by the blood clot on the left side. No active bleeding. NECK: Supple. THYROID: No thyromegaly. No goiter. LYMPH NODES: No lymphadenopathy of the neck. ORAL CAVITY AND OROPHARYNX: No masses. No lesions. No erythema. No edema. LIPS AND GUMS: No masses. No lesions. No erythema. No edema. ASSESSMENT: 1. Deviated septum. 2. Epistaxis, resolved. PLAN: Recommend nasal saline spray for the patient. The patient to follow up in my office for nasal endoscopy, to examine the nose as an outpatient. Harshal Jose MD
[2017-09-09] MEDS: Cholestyramine 4 gm/Pkt UD PO SCH (22:58)
--- NOTE | 2017-09-10 02:05 | OP ---
PROCEDURE DATE: 09/09/2017 PREOPERATIVE DIAGNOSIS: Renal failure. POSTOPERATIVE DIAGNOSIS: Renal failure. PROCEDURE CARRIED OUT: Placement of brachiocephalic fistula, left elbow. SURGEON: Servando Cervantes Jr., MD COOK APPRENTICE PASTRY: Dr. Metcalf. ANESTHESIOLOGIST: Dr. Marinelli. INDICATIONS: The patient is a 56-year-old male with renal insufficiency, now requiring dialysis who presents for the need for permanent access. OPERATIVE FINDINGS: A fistula is created between the end of the cephalic vein and the adjacent brachial artery in an end-to-side fashion. At the end of the procedure, there were palpable pulse at the wrist and a palpable thrill to the fistula. DESCRIPTION OF PROCEDURE: The patient was given general anesthesia and intravenous antibiotics. Venodyne boots was applied. The incision was made over the vein which I have marked on the skin. The two branches of vein were then spatulated and opened in an end-to-side fashion, carried out using loop magnification, heparin anticoagulation. After completion of the anastomosis, there was a good pulse at the wrist, there was a good flow through the fistula, and the bleeding was controlled. The wound was then closed with subcuticular closure and Steri-Strips. Blood loss is 10 mL. Operation carried out is brachiocephalic fistula, left elbow. Servando Cervantes Jr., MD cc: Julio Lezama MD
[2017-09-10] MEDS: Piperacill/Tazo 2.25gm in Dex 2.25 GM/50 ML BAG IVPB SCH ×3 (04:43→19:31)
[2017-09-10] MEDS: Oseltamivir 6 MG/ML PO SCH (06:00)
[2017-09-10] MEDS: (Novolin R) Insulin Human Regular 100 units/ml vial SC SCH ×4 (07:21→21:03)
[2017-09-10 07:47] LABS: BASO % 0.6 % (0.0-2.0); EOS # 0.1 K/uL (0.0-0.7); EOS % 1.9 % (0.0-4.0); HEMOGLOBIN 8.3 g/dL (12.0-18.0); LYMPH % 27.9 % (20.0-40.0); MEAN CORPUSCULAR HEMOGLOBIN 28.9 pg (27.0-31.0); MEAN PLATELET VOLUME 7.9 fL (7.2-11.7); MONO # 0.9 K/uL (0.0-0.8); MONO % 12.5 % (0.0-10.0); NEUT # 4.1 K/uL (1.8-7.0); NEUT % 57.1 % (50.0-75.0); NRBC % 0.5 % (0.0-2.0); RBC 2.87 Mil/uL (4.40-5.90); RED CELL DISTRIBUTION WIDTH 17.7 % (11.5-14.5); WHITE BLOOD COUNT 7.2 K/uL (4.8-10.8)
[2017-09-10 08:16] LABS: ALB/GLOB RATIO 0.8 (1.0-2.1); CALCIUM 7.7 mg/dl (8.6-10.4)
[2017-09-10] MEDS: Cholestyramine 4 gm/Pkt UD PO SCH ×2 (09:41→17:06)
--- NOTE | 2017-09-10 09:52 | CP.PCM.PN ---
Subjective - Date & Time of Evaluation Date of Evaluation: 09/10/17 Time of Evaluation: 07:30 - Subjective Subjective: Medicine progress note ( Dr. Javier's service) Patient was seen and examined at bedside. Patient reports that he is doing well with improving symptoms of chills and subjective fevers. Patient denies chest pain, SOB, palpitations, nausea, vomiting, fever or chills, abdominal pain, diarrhea or constipation. Patient is s/p L-arm brachio-cephalic AVF POD #1, patient tolerated the procedure well with no acute issues and denies any pain at surgical site. Objective - Vital Signs/Intake and Output Vital Signs (last 24 hours): Temp Pulse Resp BP Pulse Ox 98.1 F 76 20 115/68 97 09/10/17 07:00 09/10/17 07:15 09/10/17 07:00 09/10/17 07:00 09/10/17 07:00 Intake and Output: 09/10/17 09/10/17 06:59 18:59 Intake Total 710 Output Total 200 Balance 510 - Medications Medications: Current Medications Acetaminophen (Tylenol 325mg Tab) 650 mg PO Q6 PRN PRN Reason: Pain, moderate (4-7) Last Admin: 09/07/17 22:52 Dose: 650 mg Acetaminophen (Tylenol 325mg Tab) 650 mg PO Q6 PRN PRN Reason: Fever >100.4 F Last Admin: 09/08/17 17:09 Dose: 650 mg Acetaminophen (Tylenol 325mg Tab) 650 mg PO ONCE [facility] Calcitriol (Rocaltrol) 0.25 mcg PO DAILY [facility] Last Admin: 09/10/17 09:36 Dose: 0.25 mcg Calcium Acetate (Phoslo) 667 mg PO TIDCC [facility] Last Admin: 09/10/17 08:35 Dose: 667 mg Carvedilol (Coreg) 6.25 mg PO BID [facility] Last Admin: 09/10/17 09:37 Dose: Not Given Cholestyramine Resin (Questran) 4 gm PO BID [facility] Last Admin: 09/10/17 09:41 Dose: 4 gm Clonidine HCl (Catapres) 0.1 mg PO Q12 [facility] Last Admin: 09/10/17 09:36 Dose: Not Given Colchicine (Colocrys) 0.6 mg PO DAILY [facility] Last Admin: 09/10/17 09:45 Dose: 0.6 mg Dextrose (Dextrose 50% Inj) 0 ml IV STAT PRN; Protocol PRN Reason: Hypoglycemia Protocol Dextrose (Glutose 15) 0 gm PO ONCE PRN; Protocol PRN Reason: Hypoglycemia Protocol Docusate Sodium (Colace) 100 mg PO BID [facility] Last Admin: 09/10/17 09:36 Dose: 100 mg Emollient Ointment (Vaseline Oint) 5 gm TOP Q4 PRN PRN Reason: Dry skin Epoetin Chuy (Procrit) 10,000 unit IV MWF [facility] Last Admin: 09/08/17 10:38 Dose: 10,000 unit Famotidine (Pepcid) 20 mg PO DAILY [facility] Last Admin: 09/10/17 09:36 Dose: 20 mg Glucagon (Glucagen Diagnostic Kit) 0 mg IM STAT PRN; Protocol PRN Reason: Hypoglycemia Protocol Dextrose (Dextrose 5% In Water 1000 Ml) 1,000 mls @ 0 mls/hr IV .Q0M PRN; Protocol; Per Protocol PRN Reason: Hypoglycemia Protocol Vancomycin/Sodium Chloride (Vancomycin 1 Gm/Ns 200 Ml) 1 gm in 200 mls @ 133.333 mls/hr IVPB Q24H [facility] PRN Reason: Protocol Stop: 09/14/17 13:01 Last Admin: 09/09/17 13:02 Dose: 133.333 mls/hr Piperacillin Sod/Tazobactam Sod (Zosyn 2.25 Gm Iv Premix) 2.25 gm in 50 mls @ 100 mls/hr IVPB Q8H [facility] PRN Reason: Protocol Last Admin: 09/10/17 04:43 Dose: 100 mls/hr Insulin Human Regular (Novolin R) 0 unit SC ACHS [facility] PRN Reason: Protocol Last Admin: 09/10/17 07:21 Dose: Not Given Prednisone (Prednisone Tab) 30 mg PO DAILY [facility] Stop: 09/11/17 14:00 Last Admin: 09/10/17 09:36 Dose: 30 mg - Labs Labs: 09/10/17 07:28 09/10/17 07:28 PT 10.6 SECONDS (9.7-12.2) 09/05/17 08:00 INR 1.0 09/05/17 08:00 APTT 31 SECONDS (21-34) 09/05/17 08:00 - Constitutional Appears: No Acute Distress - Head Exam Head Exam: ATRAUMATIC, NORMAL INSPECTION - Eye Exam Eye Exam: EOMI - Neck Exam Additional comments: Right IJ Permacath in place - Respiratory Exam Respiratory Exam: Clear to Ausculation Bilateral, NORMAL BREATHING PATTERN. absent: Prolonged Expiratory Phase, Rhonchi, Wheezes, Respiratory Distress - Cardiovascular Exam Cardiovascular Exam: REGULAR RHYTHM, +S1, +S2 - GI/Abdominal Exam GI & Abdominal Exam: Soft, Normal Bowel Sounds. absent: Distended, Firm, Guarding, Rigid, Tenderness - Extremities Exam Extremities Exam: Normal Inspection. absent: Calf Tenderness, Pedal Edema - Back Exam Back Exam: NORMAL INSPECTION. 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 Lezama--> Help appreciated * HD scheduled MWF General surgery, Dr. Cervantes---> Help appreciated * Placement of Right IJ permatcath * S/P L- arm Brachio-Cephalic AVF POD #1 Medications: - Calcitriol 0.25mcg PO QD - Phoslo 667mg PO TIDCC - Sodium Bicarbonate 650mg PO BID - Procrit 10,000u IV MWF Status: Acute (2) Fever Assessment & Plan: - Afebrile > 24 hours -Tmax 102.1, (09/07/17), - Tylenol 650mg PO Q6H PRN - Zosyn 2.25gm IV once (09/08/17)---> Q8H (09/09/17) - Vanco 1gm IV once (09/08/17)---> MWF after HD -Tamiflu 30mg PO daily, finish dose 09/11/17 Labs: Rapid Influenza negative (25% false negative) BC (09/06/17): No growth > 48 hours, f/u repeat BC (09/08/17)--> No growth > 24 hours Urine culture (09/04 and 09/07): Negative Throat culture (09/07): Negative CXR (09/06/17): Right central venous catheter tip extending into the right atrium. Mild venous congestion. Right hilar prominence. Upper lobe granulomatous changes. Heart size within normal limits. Calcification at the aortic knob. Status: Acute (3) Anemia of chronic disease Assessment & Plan: H/H stable 2 units of PRBC administered Monitor H/H with am labs - Iron NORMAL, TIBC NORMAL, % Saturation NORMAL, Ferritin ELEVATED - Hep panel: Hep Bs Antibody Positive Medication: * Procrit 10,000 unit IVF, MWF on HD Status: Acute (4) Acute gout Assessment & Plan: Prednisone 30mg PO daily Status: Acute (5) HTN (hypertension) Assessment & Plan: Controlled with medication * Coreg 4mg PO BID * Clonidine 0.1mg PO Q12H Status: Chronic (6) Hyperlipidemia Assessment & Plan: Prevalite 4gm PO BID Status: Chronic (7) Diabetes mellitus Assessment & Plan: -ISS- Low dose - Accucheck - Hypoglycemia protocol Status: Chronic (8) Epistaxis Assessment & Plan: Resolved H/H stable Petroleum ointment Consultation, Dr. Jose---> Help appreciated * Recommendation for outpatient nasal endoscopy and nasal saline spray Continue to monitor H/H with labs Status: Acute (9) Prophylactic measure Assessment & Plan: - Pepcid 20mg bid - heparin on hold due to AVF fistula, will resume as per surgical recommendation - SCDs All plans and management discussed with Dr. Javier Status: Acute
[2017-09-10] MEDS: Epoetin Alfa 10,000 unit/ml Dialysis IV SCH (10:53)
--- NOTE | 2017-09-10 14:19 | CP.PCM.PN ---
Subjective - Date & Time of Evaluation Date of Evaluation: 09/10/17 Time of Evaluation: 14:17 - Subjective Subjective: s/p dialysis now- tolerated well s/p AV fistula- has good bruit HTN still labile gout improving no new complaint Objective - Vital Signs/Intake and Output Vital Signs (last 24 hours): Temp Pulse Resp BP Pulse Ox 98.3 F 81 20 178/76 H 94 L 09/10/17 13:40 09/10/17 13:40 09/10/17 13:40 09/10/17 13:40 09/10/17 13:40 Intake and Output: 09/10/17 09/10/17 06:59 18:59 Intake Total 710 Output Total 200 Balance 510 - Medications Medications: Current Medications Acetaminophen (Tylenol 325mg Tab) 650 mg PO Q6 PRN PRN Reason: Pain, moderate (4-7) Last Admin: 09/07/17 22:52 Dose: 650 mg Acetaminophen (Tylenol 325mg Tab) 650 mg PO Q6 PRN PRN Reason: Fever >100.4 F Last Admin: 09/08/17 17:09 Dose: 650 mg Acetaminophen (Tylenol 325mg Tab) 650 mg PO ONCE [facility] Calcitriol (Rocaltrol) 0.25 mcg PO DAILY [facility] Last Admin: 09/10/17 09:36 Dose: 0.25 mcg Calcium Acetate (Phoslo) 667 mg PO TIDCC [facility] Last Admin: 09/10/17 13:00 Dose: Not Given Carvedilol (Coreg) 6.25 mg PO BID [facility] Last Admin: 09/10/17 13:41 Dose: 6.25 mg Cholestyramine Resin (Questran) 4 gm PO BID [facility] Last Admin: 09/10/17 09:41 Dose: 4 gm Clonidine HCl (Catapres) 0.1 mg PO Q12 [facility] Last Admin: 09/10/17 13:40 Dose: 0.1 mg Colchicine (Colocrys) 0.6 mg PO DAILY [facility] Last Admin: 09/10/17 09:45 Dose: 0.6 mg Dextrose (Dextrose 50% Inj) 0 ml IV STAT PRN; Protocol PRN Reason: Hypoglycemia Protocol Dextrose (Glutose 15) 0 gm PO ONCE PRN; Protocol PRN Reason: Hypoglycemia Protocol Docusate Sodium (Colace) 100 mg PO BID [facility] Last Admin: 09/10/17 09:36 Dose: 100 mg Emollient Ointment (Vaseline Oint) 5 gm TOP Q4 PRN PRN Reason: Dry skin Epoetin Chuy (Procrit) 10,000 unit IV MWF [facility] Last Admin: 09/10/17 10:53 Dose: 10,000 unit Famotidine (Pepcid) 20 mg PO DAILY [facility] Last Admin: 09/10/17 09:36 Dose: 20 mg Glucagon (Glucagen Diagnostic Kit) 0 mg IM STAT PRN; Protocol PRN Reason: Hypoglycemia Protocol Piperacillin Sod/Tazobactam Sod (Zosyn 2.25 Gm Iv Premix) 2.25 gm in 50 mls @ 100 mls/hr IVPB Q8H [facility] PRN Reason: Protocol Last Admin: 09/10/17 13:34 Dose: 100 mls/hr Vancomycin/Sodium Chloride (Vancomycin 1 Gm/Ns 200 Ml) 1 gm in 200 mls @ 166.7 mls/hr IVPB MWF [facility] PRN Reason: Protocol Stop: 09/17/17 09:01 Insulin Human Regular (Novolin R) 0 unit SC ACHS [facility] PRN Reason: Protocol Last Admin: 09/10/17 13:30 Dose: Not Given Prednisone (Prednisone Tab) 30 mg PO DAILY [facility] Stop: 09/11/17 14:00 Last Admin: 09/10/17 09:36 Dose: 30 mg - Labs Labs: 09/10/17 07:28 09/10/17 07:28 PT 10.6 SECONDS (9.7-12.2) 09/05/17 08:00 INR 1.0 09/05/17 08:00 APTT 31 SECONDS (21-34) 09/05/17 08:00 - Constitutional Appears: No Acute Distress, Chronically Ill - Head Exam Head Exam: ATRAUMATIC, NORMAL INSPECTION - Eye Exam Eye Exam: EOMI, Normal appearance - Neck Exam Neck Exam: Normal Inspection. absent: Tenderness - Respiratory Exam Respiratory Exam: Clear to Ausculation Bilateral, NORMAL BREATHING PATTERN - Cardiovascular Exam Cardiovascular Exam: REGULAR RHYTHM, +S1 - GI/Abdominal Exam GI & Abdominal Exam: Soft. absent: Tenderness - Extremities Exam Extremities Exam: Normal Inspection. absent: Tenderness - Neurological Exam Neurological Exam: Alert, CN II-XII Intact - Skin Skin Exam: Dry, Warm Assessment and Plan (1) ESRD (end stage renal disease) Status: Acute (2) Type 2 diabetes mellitus with diabetic nephropathy Status: Acute (3) HTN (hypertension) Status: Chronic (4) Rheumatoid arthritis Status: Acute (5) Hyperkalemia Status: Acute (6) Acute gout Status: Acute - Assessment and Plan (Free Text) Plan: increase BP control continue rx gout outpt dialysis placement
--- NOTE | 2017-09-10 14:23 | CP.PCM.PN ---
Subjective - Date & Time of Evaluation Date of Evaluation: 09/10/17 Time of Evaluation: 14:20 - Subjective Subjective: Vascular Surgery: Dr. Cervantes Pt seen and examined. No acute overnight events. States he feels well and denies and complaints at this time. Pain is well controlled. Tolerating HD. Denies F/C. Objective - Vital Signs/Intake and Output Vital Signs (last 24 hours): Temp Pulse Resp BP Pulse Ox 98.3 F 81 20 178/76 H 94 L 09/10/17 13:40 09/10/17 13:40 09/10/17 13:40 09/10/17 13:40 09/10/17 13:40 Intake and Output: 09/10/17 09/10/17 06:59 18:59 Intake Total 710 Output Total 200 Balance 510 - Medications Medications: Current Medications Acetaminophen (Tylenol 325mg Tab) 650 mg PO Q6 PRN PRN Reason: Pain, moderate (4-7) Last Admin: 09/07/17 22:52 Dose: 650 mg Acetaminophen (Tylenol 325mg Tab) 650 mg PO Q6 PRN PRN Reason: Fever >100.4 F Last Admin: 09/08/17 17:09 Dose: 650 mg Acetaminophen (Tylenol 325mg Tab) 650 mg PO ONCE [facility] Calcitriol (Rocaltrol) 0.25 mcg PO DAILY [facility] Last Admin: 09/10/17 09:36 Dose: 0.25 mcg Calcium Acetate (Phoslo) 667 mg PO TIDCC [facility] Last Admin: 09/10/17 13:00 Dose: Not Given Carvedilol (Coreg) 12.5 mg PO BID [facility] Cholestyramine Resin (Questran) 4 gm PO BID [facility] Last Admin: 09/10/17 09:41 Dose: 4 gm Clonidine HCl (Catapres) 0.1 mg PO Q12 [facility] Last Admin: 09/10/17 13:40 Dose: 0.1 mg Colchicine (Colocrys) 0.6 mg PO DAILY [facility] Last Admin: 09/10/17 09:45 Dose: 0.6 mg Dextrose (Dextrose 50% Inj) 0 ml IV STAT PRN; Protocol PRN Reason: Hypoglycemia Protocol Dextrose (Glutose 15) 0 gm PO ONCE PRN; Protocol PRN Reason: Hypoglycemia Protocol Docusate Sodium (Colace) 100 mg PO BID [facility] Last Admin: 09/10/17 09:36 Dose: 100 mg Emollient Ointment (Vaseline Oint) 5 gm TOP Q4 PRN PRN Reason: Dry skin Epoetin Chuy (Procrit) 10,000 unit IV MWF [facility] Last Admin: 09/10/17 10:53 Dose: 10,000 unit Famotidine (Pepcid) 20 mg PO DAILY [facility] Last Admin: 09/10/17 09:36 Dose: 20 mg Glucagon (Glucagen Diagnostic Kit) 0 mg IM STAT PRN; Protocol PRN Reason: Hypoglycemia Protocol Piperacillin Sod/Tazobactam Sod (Zosyn 2.25 Gm Iv Premix) 2.25 gm in 50 mls @ 100 mls/hr IVPB Q8H [facility] PRN Reason: Protocol Last Admin: 09/10/17 13:34 Dose: 100 mls/hr Vancomycin/Sodium Chloride (Vancomycin 1 Gm/Ns 200 Ml) 1 gm in 200 mls @ 166.7 mls/hr IVPB MWF [facility] PRN Reason: Protocol Stop: 09/17/17 09:01 Insulin Human Regular (Novolin R) 0 unit SC ACHS [facility] PRN Reason: Protocol Last Admin: 09/10/17 13:30 Dose: Not Given Prednisone (Prednisone Tab) 30 mg PO DAILY [facility] Stop: 09/11/17 14:00 Last Admin: 09/10/17 09:36 Dose: 30 mg - Labs Labs: 09/10/17 07:28 09/10/17 07:28 PT 10.6 SECONDS (9.7-12.2) 09/05/17 08:00 INR 1.0 09/05/17 08:00 APTT 31 SECONDS (21-34) 09/05/17 08:00 - Constitutional Appears: Well, No Acute Distress - ENT Exam ENT Exam: Mucous Membranes Moist - Respiratory Exam Respiratory Exam: NORMAL BREATHING PATTERN - Cardiovascular Exam Cardiovascular Exam: RRR - GI/Abdominal Exam GI & Abdominal Exam: Soft. absent: Tenderness - Extremities Exam Additional comments: L arm AVF in place with palpable thrill, 2+ radial pulse - Neurological Exam Neurological Exam: Alert, Awake, Oriented x3 - Skin Skin Exam: Dry, Warm Assessment and Plan - Assessment and Plan (Free Text) Assessment: 56M with ESRD s/p L AVF; POD#1 Plan: - cont HD via permacath until fistula matures - d/w Dr. Helen Metcalf, PGY-3
[2017-09-10] MEDS: Sodium Chloride Nasal 0.65% Soln (30ml) NAS SCH (21:46)
[2017-09-11] MEDS: Piperacill/Tazo 2.25gm in Dex 2.25 GM/50 ML BAG IVPB SCH ×3 (03:30→20:13)
--- NOTE | 2017-09-11 07:52 | CP.PCM.PN ---
Subjective - Date & Time of Evaluation Date of Evaluation: 09/11/17 Time of Evaluation: 07:05 - Subjective Subjective: Medicine progress note ( Dr. Javier's service) Patient was seen and examined at bedside. Patient reports that he is doing well with no acute complaints. Patient denies chest pain, SOB, palpitations, nausea, vomiting, fever or chills, abdominal pain, diarrhea or constipation or urinary symptoms. Patient reports that he is making adequate amount of urine. Patient is s/p L-arm brachio-cephalic AVF POD #2, patient denies any pain at the surgical site and he is able to palpate thrill. Objective - Vital Signs/Intake and Output Vital Signs (last 24 hours): Temp Pulse Resp BP Pulse Ox 98.0 F 72 18 153/81 H 97 09/11/17 07:20 09/11/17 07:20 09/11/17 07:20 09/11/17 07:20 09/11/17 07:20 Intake and Output: 09/11/17 09/11/17 06:59 18:59 Output Total 750 Balance -750 - Medications Medications: Current Medications Acetaminophen (Tylenol 325mg Tab) 650 mg PO Q6 PRN PRN Reason: Pain, moderate (4-7) Last Admin: 09/07/17 22:52 Dose: 650 mg Acetaminophen (Tylenol 325mg Tab) 650 mg PO Q6 PRN PRN Reason: Fever >100.4 F Last Admin: 09/08/17 17:09 Dose: 650 mg Acetaminophen (Tylenol 325mg Tab) 650 mg PO ONCE [facility] Calcitriol (Rocaltrol) 0.25 mcg PO DAILY [facility] Last Admin: 09/10/17 09:36 Dose: 0.25 mcg Calcium Acetate (Phoslo) 667 mg PO TIDCC [facility] Last Admin: 09/10/17 17:05 Dose: 667 mg Carvedilol (Coreg) 12.5 mg PO BID [facility] Last Admin: 09/10/17 17:05 Dose: 12.5 mg Cholestyramine Resin (Questran) 4 gm PO BID [facility] Last Admin: 09/10/17 17:06 Dose: 4 gm Clonidine HCl (Catapres) 0.1 mg PO Q12 [facility] Last Admin: 09/10/17 21:46 Dose: 0.1 mg Colchicine (Colocrys) 0.6 mg PO DAILY [facility] Last Admin: 09/10/17 09:45 Dose: 0.6 mg Dextrose (Dextrose 50% Inj) 0 ml IV STAT PRN; Protocol PRN Reason: Hypoglycemia Protocol Dextrose (Glutose 15) 0 gm PO ONCE PRN; Protocol PRN Reason: Hypoglycemia Protocol Docusate Sodium (Colace) 100 mg PO BID [facility] Last Admin: 09/10/17 17:05 Dose: 100 mg Emollient Ointment (Vaseline Oint) 5 gm TOP Q4 PRN PRN Reason: Dry skin Epoetin Chuy (Procrit) 10,000 unit IV MWF [facility] Last Admin: 09/10/17 10:53 Dose: 10,000 unit Famotidine (Pepcid) 20 mg PO DAILY [facility] Last Admin: 09/10/17 09:36 Dose: 20 mg Glucagon (Glucagen Diagnostic Kit) 0 mg IM STAT PRN; Protocol PRN Reason: Hypoglycemia Protocol Piperacillin Sod/Tazobactam Sod (Zosyn 2.25 Gm Iv Premix) 2.25 gm in 50 mls @ 100 mls/hr IVPB Q8H [facility] PRN Reason: Protocol Last Admin: 09/11/17 03:30 Dose: 100 mls/hr Vancomycin/Sodium Chloride (Vancomycin 1 Gm/Ns 200 Ml) 1 gm in 200 mls @ 166.7 mls/hr IVPB MWF [facility] PRN Reason: Protocol Stop: 09/17/17 09:01 Insulin Human Regular (Novolin R) 0 unit SC ACHS [facility] PRN Reason: Protocol Last Admin: 09/10/17 21:03 Dose: Not Given Prednisone (Prednisone Tab) 30 mg PO DAILY [facility] Stop: 09/11/17 14:00 Last Admin: 09/10/17 09:36 Dose: 30 mg Sodium Chloride ([place] Baby Saline 30 Ml) 1 ml CHERI BID [facility] Last Admin: 09/10/17 21:46 Dose: 1 spr - Labs Labs: 09/10/17 07:28 09/10/17 07:28 PT 10.6 SECONDS (9.7-12.2) 09/05/17 08:00 INR 1.0 09/05/17 08:00 APTT 31 SECONDS (21-34) 09/05/17 08:00 - Constitutional Appears: Well, No Acute Distress - Head Exam Head Exam: ATRAUMATIC, NORMAL INSPECTION - Eye Exam Eye Exam: EOMI - ENT Exam ENT Exam: Mucous Membranes Moist - Neck Exam Additional comments: Right IJ permacath for HD, placed on 09/05/17 - Respiratory Exam Respiratory Exam: Clear to Ausculation Bilateral, NORMAL BREATHING PATTERN. absent: Rhonchi, Wheezes, Respiratory Distress - Cardiovascular Exam Cardiovascular Exam: REGULAR RHYTHM, +S1, +S2 - GI/Abdominal Exam GI & Abdominal Exam: Soft, Normal Bowel Sounds. absent: Distended, Firm, Guarding, Rigid, Tenderness - Extremities Exam Extremities Exam: Normal Inspection. absent: Calf Tenderness, Pedal Edema Additional comments: L-arm brachio-cephalic AVF POD #2; palpable thrill and audible bruit - Neurological Exam Neurological Exam: Alert, Awake, Oriented x3 - Psychiatric Exam Psychiatric exam: Normal Affect - Skin Skin Exam: Normal Color Assessment and Plan (1) ESRD on hemodialysis Assessment & Plan: New onset Consultation: Media Operator, Dr. Lezama--> Help appreciated * HD scheduled MWF General surgery, Dr. Cervantes---> Help appreciated * Placement of Right IJ permatcath * S/P L- arm Brachio-Cephalic AVF POD #2 Medications: - Calcitriol 0.25mcg PO QD - Phoslo 667mg PO TIDCC - Sodium Bicarbonate 650mg PO BID - Procrit 10,000u IV MWF Status: Acute (2) Fever Assessment & Plan: - Afebrile > 24 hours -Tmax 102.1, (09/07/17), - Tylenol 650mg PO Q6H PRN - Zosyn 2.25gm IV once (09/08/17)---> Q8H (09/09/17) - Vanco 1gm IV once (09/08/17)---> MWF after HD -Tamiflu 30mg PO daily, finish dose 09/11/17 Labs: Rapid Influenza negative (25% false negative) BC (09/06/17): No growth for 4 days, f/u repeat BC (09/08/17)--> No growth > 48 hours Urine culture (09/04 and 09/07): Negative Throat culture (09/07): Negative CXR (09/06/17): Right central venous catheter tip extending into the right atrium. Mild venous congestion. Right hilar prominence. Upper lobe granulomatous changes. Heart size within normal limits. Calcification at the aortic knob. Status: Acute (3) Anemia of chronic disease Assessment & Plan: H/H stable 2 units of PRBC administered Monitor H/H with am labs - Iron NORMAL, TIBC NORMAL, % Saturation NORMAL, Ferritin ELEVATED - Hep panel: Hep Bs Antibody Positive Medication: * Procrit 10,000 unit IVF, MWF on HD Status: Acute (4) Acute gout Assessment & Plan: Prednisone 30mg PO daily Status: Acute (5) HTN (hypertension) Assessment & Plan: Controlled with medication * Coreg 4mg PO BID * Clonidine 0.1mg PO Q12H Status: Chronic (6) Hyperlipidemia Assessment & Plan: Prevalite 4gm PO BID Status: Chronic (7) Diabetes mellitus Assessment & Plan: HgbA1C: 6.0 -ISS- Low dose - Accucheck - Hypoglycemia protocol Status: Chronic (8) Epistaxis Assessment & Plan: Resolved H/H stable Petroleum ointment Consultation, Dr. Jose---> Help appreciated * Recommendation for outpatient nasal endoscopy and nasal saline spray Nasal saline spray BID Status: Acute (9) Prophylactic measure Assessment & Plan: - Pepcid 20mg bid - heparin on hold due to AVF fistula, will resume as per surgical recommendation - SCDs Disposition: Patient is awaiting HD outpatient placement All plans and management discussed with Dr. Javier Status: Acute
[2017-09-11 08:27] LABS: BASO # 0.1 K/uL (0.0-0.2); BASO % 0.5 % (0.0-2.0); EOS # 0.1 K/uL (0.0-0.7); EOS % 0.8 % (0.0-4.0); HEMOGLOBIN 8.7 g/dL (12.0-18.0); LYMPH # 1.9 K/uL (1.0-4.3); LYMPH % 19.5 % (20.0-40.0); MEAN CELL VOLUME 86.5 fL (80.0-94.0); MEAN CORPUSCULAR HEMOGLOBIN 28.5 pg (27.0-31.0); MEAN PLATELET VOLUME 7.9 fL (7.2-11.7); MONO # 1.3 K/uL (0.0-0.8); MONO % 13.9 % (0.0-10.0); NEUT # 6.2 K/uL (1.8-7.0); NEUT % 65.3 % (50.0-75.0); NRBC % 0.6 % (0.0-2.0); RBC 3.06 Mil/uL (4.40-5.90); RED CELL DISTRIBUTION WIDTH 18.2 % (11.5-14.5); WHITE BLOOD COUNT 9.6 K/uL (4.8-10.8)
[2017-09-11] MEDS: (Novolin R) Insulin Human Regular 100 units/ml vial SC SCH ×4 (08:30→21:15)
[2017-09-11 08:40] LABS: ALB/GLOB RATIO 0.8 (1.0-2.1); ALBUMIN 3.1 g/dL (3.5-5.0); CALCIUM 7.8 mg/dl (8.6-10.4)
[2017-09-11] MEDS: Sodium Chloride Nasal 0.65% Soln (30ml) NAS SCH ×2 (09:54→18:12)
[2017-09-11] MEDS: Cholestyramine 4 gm/Pkt UD PO SCH ×2 (09:57→18:13)
--- NOTE | 2017-09-11 10:18 | CP.PCM.PN ---
Subjective - Date & Time of Evaluation Date of Evaluation: 09/11/17 Time of Evaluation: 10:16 - Subjective Subjective: alert; feels better gout better BP sl elevated awaiting outpt HD placement stable HD 09/10 no n, v, f, c, SOB, CPs Objective - Vital Signs/Intake and Output Vital Signs (last 24 hours): Temp Pulse Resp BP Pulse Ox 98.0 F 72 18 153/81 H 97 09/11/17 07:20 09/11/17 07:20 09/11/17 07:20 09/11/17 09:58 09/11/17 07:20 Intake and Output: 09/11/17 09/11/17 06:59 18:59 Output Total 750 Balance -750 - Medications Medications: Current Medications Acetaminophen (Tylenol 325mg Tab) 650 mg PO Q6 PRN PRN Reason: Pain, moderate (4-7) Last Admin: 09/07/17 22:52 Dose: 650 mg Acetaminophen (Tylenol 325mg Tab) 650 mg PO Q6 PRN PRN Reason: Fever >100.4 F Last Admin: 09/08/17 17:09 Dose: 650 mg Acetaminophen (Tylenol 325mg Tab) 650 mg PO ONCE [facility] Calcitriol (Rocaltrol) 0.25 mcg PO DAILY [facility] Last Admin: 09/11/17 09:57 Dose: 0.25 mcg Calcium Acetate (Phoslo) 667 mg PO TIDCC [facility] Last Admin: 09/11/17 08:40 Dose: 667 mg Carvedilol (Coreg) 12.5 mg PO BID [facility] Last Admin: 09/11/17 09:58 Dose: 12.5 mg Cholestyramine Resin (Questran) 4 gm PO BID [facility] Last Admin: 09/11/17 09:57 Dose: 4 gm Clonidine HCl (Catapres) 0.1 mg PO Q12 [facility] Last Admin: 09/11/17 09:57 Dose: 0.1 mg Colchicine (Colocrys) 0.6 mg PO MWF6 [facility] Dextrose (Dextrose 50% Inj) 0 ml IV STAT PRN; Protocol PRN Reason: Hypoglycemia Protocol Dextrose (Glutose 15) 0 gm PO ONCE PRN; Protocol PRN Reason: Hypoglycemia Protocol Docusate Sodium (Colace) 100 mg PO BID [facility] Last Admin: 09/11/17 09:58 Dose: 100 mg Emollient Ointment (Vaseline Oint) 5 gm TOP Q4 PRN PRN Reason: Dry skin Epoetin Chuy (Procrit) 10,000 unit IV MWF [facility] Last Admin: 09/10/17 10:53 Dose: 10,000 unit Famotidine (Pepcid) 20 mg PO DAILY [facility] Last Admin: 09/11/17 09:58 Dose: 20 mg Glucagon (Glucagen Diagnostic Kit) 0 mg IM STAT PRN; Protocol PRN Reason: Hypoglycemia Protocol Piperacillin Sod/Tazobactam Sod (Zosyn 2.25 Gm Iv Premix) 2.25 gm in 50 mls @ 100 mls/hr IVPB Q8H [facility] PRN Reason: Protocol Last Admin: 09/11/17 03:30 Dose: 100 mls/hr Vancomycin/Sodium Chloride (Vancomycin 1 Gm/Ns 200 Ml) 1 gm in 200 mls @ 166.7 mls/hr IVPB MWF [facility] PRN Reason: Protocol Stop: 09/17/17 09:01 Insulin Human Regular (Novolin R) 0 unit SC ACHS [facility] PRN Reason: Protocol Last Admin: 09/11/17 08:30 Dose: Not Given Sodium Chloride ([place] Baby Saline 30 Ml) 1 ml CHERI BID [facility] Last Admin: 09/11/17 09:54 Dose: 1 spr - Labs Labs: 09/11/17 08:13 09/11/17 08:13 PT 10.6 SECONDS (9.7-12.2) 09/05/17 08:00 INR 1.0 09/05/17 08:00 APTT 31 SECONDS (21-34) 09/05/17 08:00 - Constitutional Appears: No Acute Distress, Chronically Ill - Head Exam Head Exam: ATRAUMATIC, NORMAL INSPECTION - Eye Exam Eye Exam: EOMI, Normal appearance - Neck Exam Neck Exam: Normal Inspection. absent: Tenderness - Respiratory Exam Respiratory Exam: Clear to Ausculation Bilateral, NORMAL BREATHING PATTERN - Cardiovascular Exam Cardiovascular Exam: REGULAR RHYTHM, +S1 - GI/Abdominal Exam GI & Abdominal Exam: Soft. absent: Tenderness - Extremities Exam Extremities Exam: Normal Inspection. absent: Tenderness - Neurological Exam Neurological Exam: Awake, CN II-XII Intact - Skin Skin Exam: Dry, Warm Assessment and Plan (1) ESRD (end stage renal disease) Status: Acute (2) Type 2 diabetes mellitus with diabetic nephropathy Status: Acute (3) HTN (hypertension) Status: Chronic (4) Rheumatoid arthritis Status: Acute (5) Hyperkalemia Status: Acute (6) Acute gout Status: Acute - Assessment and Plan (Free Text) Plan: Monitor BP stop steroids dialysis MWF await HD placement
[2017-09-12] MEDS: Piperacill/Tazo 2.25gm in Dex 2.25 GM/50 ML BAG IVPB SCH ×2 (03:12→13:33)
[2017-09-12] MEDS: (Novolin R) Insulin Human Regular 100 units/ml vial SC SCH ×2 (08:21→13:43)
[2017-09-12] MEDS ORDERED: Vancomycin 1 gm/NS 200 ml 1 GM/200 ML BAG IVPB SCH (09:00)
[2017-09-12] MEDS: Cholestyramine 4 gm/Pkt UD PO SCH (09:02)
[2017-09-12] MEDS: Sodium Chloride Nasal 0.65% Soln (30ml) NAS SCH (09:04)
--- NOTE | 2017-09-12 09:25 | CP.PCM.PN ---
Subjective - Date & Time of Evaluation Date of Evaluation: 09/12/17 Time of Evaluation: 09:23 - Subjective Subjective: Feels much better outpt HD arranged gout controlled no new complaint Objective - Vital Signs/Intake and Output Vital Signs (last 24 hours): Temp Pulse Resp BP Pulse Ox 98.0 F 75 18 151/78 H 97 09/12/17 07:00 09/12/17 07:40 09/12/17 07:00 09/12/17 07:00 09/12/17 07:00 Intake and Output: 09/12/17 09/12/17 06:59 18:59 Intake Total 50 Output Total 1000 Balance -950 - Medications Medications: Current Medications Acetaminophen (Tylenol 325mg Tab) 650 mg PO Q6 PRN PRN Reason: Pain, moderate (4-7) Last Admin: 09/07/17 22:52 Dose: 650 mg Acetaminophen (Tylenol 325mg Tab) 650 mg PO Q6 PRN PRN Reason: Fever >100.4 F Last Admin: 09/08/17 17:09 Dose: 650 mg Acetaminophen (Tylenol 325mg Tab) 650 mg PO ONCE [facility] Calcitriol (Rocaltrol) 0.25 mcg PO DAILY [facility] Last Admin: 09/12/17 09:03 Dose: 0.25 mcg Calcium Acetate (Phoslo) 667 mg PO TIDCC [facility] Last Admin: 09/12/17 08:20 Dose: 667 mg Carvedilol (Coreg) 12.5 mg PO BID [facility] Last Admin: 09/11/17 18:07 Dose: 12.5 mg Cholestyramine Resin (Questran) 4 gm PO BID [facility] Last Admin: 09/12/17 09:02 Dose: 4 gm Clonidine HCl (Catapres) 0.1 mg PO Q12 [facility] Last Admin: 09/11/17 21:27 Dose: 0.1 mg Colchicine (Colocrys) 0.6 mg PO MWF6 [facility] Dextrose (Dextrose 50% Inj) 0 ml IV STAT PRN; Protocol PRN Reason: Hypoglycemia Protocol Dextrose (Glutose 15) 0 gm PO ONCE PRN; Protocol PRN Reason: Hypoglycemia Protocol Docusate Sodium (Colace) 100 mg PO BID [facility] Last Admin: 09/12/17 09:02 Dose: 100 mg Emollient Ointment (Vaseline Oint) 5 gm TOP Q4 PRN PRN Reason: Dry skin Epoetin Chuy (Procrit) 10,000 unit IV MWF [facility] Last Admin: 09/10/17 10:53 Dose: 10,000 unit Famotidine (Pepcid) 20 mg PO DAILY [facility] Last Admin: 09/12/17 09:03 Dose: 20 mg Glucagon (Glucagen Diagnostic Kit) 0 mg IM STAT PRN; Protocol PRN Reason: Hypoglycemia Protocol Heparin Sodium (Porcine) (Heparin) 5,000 units SC Q8H [facility] Last Admin: 09/12/17 03:12 Dose: 5,000 units Piperacillin Sod/Tazobactam Sod (Zosyn 2.25 Gm Iv Premix) 2.25 gm in 50 mls @ 100 mls/hr IVPB Q8H [facility] PRN Reason: Protocol Last Admin: 09/12/17 03:12 Dose: 100 mls/hr Vancomycin/Sodium Chloride (Vancomycin 1 Gm/Ns 200 Ml) 1 gm in 200 mls @ 166.7 mls/hr IVPB MWF [facility] PRN Reason: Protocol Stop: 09/17/17 09:01 Last Admin: 09/12/17 09:10 Dose: 166.7 mls/hr Insulin Human Regular (Novolin R) 0 unit SC ACHS [facility] PRN Reason: Protocol Last Admin: 09/12/17 08:21 Dose: 1 unit Sodium Chloride ([place] Baby Saline 30 Ml) 1 ml CHERI BID [facility] Last Admin: 09/12/17 09:04 Dose: 1 spr - Labs Labs: 09/11/17 08:13 09/11/17 08:13 PT 10.6 SECONDS (9.7-12.2) 09/05/17 08:00 INR 1.0 09/05/17 08:00 APTT 31 SECONDS (21-34) 09/05/17 08:00 - Constitutional Appears: No Acute Distress, Chronically Ill - Head Exam Head Exam: ATRAUMATIC, NORMAL INSPECTION - Eye Exam Eye Exam: EOMI, Normal appearance - Neck Exam Neck Exam: Normal Inspection. absent: Tenderness - Respiratory Exam Respiratory Exam: Clear to Ausculation Bilateral, NORMAL BREATHING PATTERN - Cardiovascular Exam Cardiovascular Exam: REGULAR RHYTHM - GI/Abdominal Exam GI & Abdominal Exam: Soft. absent: Tenderness - Extremities Exam Extremities Exam: Normal Inspection. absent: Tenderness - Neurological Exam Neurological Exam: Awake, CN II-XII Intact - Skin Skin Exam: Dry, Warm Assessment and Plan (1) ESRD (end stage renal disease) Status: Acute (2) Type 2 diabetes mellitus with diabetic nephropathy Status: Acute (3) HTN (hypertension) Status: Chronic (4) Rheumatoid arthritis Status: Chronic (5) Hyperkalemia Status: Resolved (6) Acute gout Status: Resolved - Assessment and Plan (Free Text) Plan: dialysis today arrangements for outpt dialysis done possible discharge
[2017-09-12 10:40] LABS: BASO # 0.1 K/uL (0.0-0.2); BASO % 0.6 % (0.0-2.0); EOS # 0.2 K/uL (0.0-0.7); EOS % 1.4 % (0.0-4.0); HEMOGLOBIN 8.1 g/dL (12.0-18.0); LYMPH # 2.2 K/uL (1.0-4.3); LYMPH % 18.8 % (20.0-40.0); MEAN CELL VOLUME 86.2 fL (80.0-94.0); MEAN CORPUSCULAR HEMOGLOBIN 27.6 pg (27.0-31.0); MEAN PLATELET VOLUME 7.7 fL (7.2-11.7); MONO % 8.5 % (0.0-10.0); NEUT # 8.1 K/uL (1.8-7.0); NEUT % 70.7 % (50.0-75.0); NRBC % 0.4 % (0.0-2.0); PLATELET COUNT 246 K/uL (130-400); RBC 2.92 Mil/uL (4.40-5.90); RED CELL DISTRIBUTION WIDTH 17.9 % (11.5-14.5); WHITE BLOOD COUNT 11.5 K/uL (4.8-10.8)
[2017-09-12 10:57] LABS: ALB/GLOB RATIO 0.8 (1.0-2.1); CALCIUM 7.7 mg/dl (8.6-10.4)
[2017-09-12 11:14] LABS: BANDS 6 % (0-2); LYMPHOCYTE 19 % (20-40); METAMYELOCYTE 1 % (0-0); MONOCYTE 5 % (0-10); MYELOCYTE 2 % (0-0); NEUTROPHIL 66 % (50-75); PLATELET ESTIMATE NORMAL (NORMAL); REACTIVE LYMPHOCYTES 1 % (0-0); TOTAL CELLS COUNTED 100
[2017-09-12 11:15] VITALS: O2SAT 100
[2017-09-12 11:15] LABS: ANISOCYTOSIS SLIGHT; HYPOCHROMIC SLIGHT; POLYCHROMIC SLIGHT
[2017-09-12] MEDS: Epoetin Alfa 10,000 unit/ml Dialysis IV SCH (12:10)
--- NOTE | 2017-09-12 13:21 | CP.PCM.DIS ---
<Anders Patel - Last Filed: 09/12/17 15:01> Provider - Provider Date of Admission: 09/04/17 16:54 Attending physician: Saurabh Anaya MD Primary care physician: Bonnie Consults: Nephro: Teja Vascular Surgery: Helen Time Spent in preparation of Discharge (in minutes): 45 Hospital Course - Lab Results Lab Results: Micro Results 09/06/17 22:40 Blood Blood Culture - Final NO GROWTH AFTER 5 DAYS 09/06/17 22:40 Blood Gram Stain - Final TEST NOT PERFORMED 09/06/17 22:45 Blood Blood Culture - Final NO GROWTH AFTER 5 DAYS 09/06/17 22:45 Blood Gram Stain - Final TEST NOT PERFORMED 09/08/17 18:00 Blood-Venous Blood Culture - Preliminary NO GROWTH AFTER 3 DAYS 09/08/17 18:00 Blood-Venous Blood Culture - Preliminary NO GROWTH AFTER 3 DAYS 09/07/17 12:54 Urine,Clean Catch Urine Culture - Final No Growth (<1,000 CFU/ML) 09/07/17 12:24 Throat Group A Strep Throat Culture - Final NO BETA STREP GROUP A ISOLATED. 09/04/17 16:17 Urine,Clean Catch Urine Culture - Final No Growth (<1,000 CFU/ML) Most Recent Lab Values WBC 11.5 K/uL (4.8-10.8) H 09/12/17 10:36 RBC 2.92 Mil/uL (4.40-5.90) L 09/12/17 10:36 Hgb 8.1 g/dL (12.0-18.0) L 09/12/17 10:36 Hct 25.2 % (35.0-51.0) L 09/12/17 10:36 MCV 86.2 fL (80.0-94.0) 09/12/17 10:36 MCH 27.6 pg (27.0-31.0) 09/12/17 10:36 MCHC 32.0 g/dL (33.0-37.0) L 09/12/17 10:36 RDW 17.9 % (11.5-14.5) H 09/12/17 10:36 Plt Count 246 K/uL (130-400) 09/12/17 10:36 MPV 7.7 fL (7.2-11.7) 09/12/17 10:36 Neut % (Auto) 70.7 % (50.0-75.0) 09/12/17 10:36 Lymph % (Auto) 18.8 % (20.0-40.0) L 09/12/17 10:36 [place] % (Auto) 8.5 % (0.0-10.0) 09/12/17 10:36 Eos % (Auto) 1.4 % (0.0-4.0) 09/12/17 10:36 Baso % (Auto) 0.6 % (0.0-2.0) 09/12/17 10:36 Neut # (Auto) 8.1 K/uL (1.8-7.0) H 09/12/17 10:36 Lymph # (Auto) 2.2 K/uL (1.0-4.3) 09/12/17 10:36 Dim[place] # (Auto) 1.0 K/uL (0.0-0.8) H 09/12/17 10:36 Eos # (Auto) 0.2 K/uL (0.0-0.7) 09/12/17 10:36 Baso # (Auto) 0.1 K/uL (0.0-0.2) 09/12/17 10:36 Neutrophils % (Manual) 66 % (50-75) 09/12/17 10:36 Band Neutrophils % 6 % (0-2) H 09/12/17 10:36 Lymphocytes % (Manual) 19 % (20-40) L 09/12/17 10:36 Reactive Lymphs % 1 % (0-0) H 09/12/17 10:36 Monocytes % (Manual) 5 % (0-10) 09/12/17 10:36 Metamyelocytes % 1 % (0-0) H 09/12/17 10:36 Myelocytes % 2 % (0-0) H 09/12/17 10:36 Platelet Estimate Normal (NORMAL) 09/12/17 10:36 Polychromasia Slight 09/12/17 10:36 Hypochromasia (manual) Slight 09/12/17 10:36 Anisocytosis (manual) Slight 09/12/17 10:36 PT 10.6 SECONDS (9.7-12.2) 09/05/17 08:00 INR 1.0 09/05/17 08:00 APTT 31 SECONDS (21-34) 09/05/17 08:00 Sodium 137 mmol/L (132-148) 09/12/17 10:36 Potassium 3.5 mmol/L (3.6-5.2) L 09/12/17 10:36 Chloride 98 mmol/L (98-107) 09/12/17 10:36 Carbon Dioxide 23 mmol/L (22-30) 09/12/17 10:36 Anion Gap 19 (10-20) 09/12/17 10:36 BUN 49 mg/dL (9-20) H 09/12/17 10:36 Creatinine 5.9 mg/dL (0.8-1.5) H 09/12/17 10:36 Est GFR ( Amer) 12 09/12/17 10:36 Est GFR (Non-Af Amer) 10 09/12/17 10:36 POC Glucose (mg/dL) 148 mg/dL (65-110) H 09/12/17 11:05 Random Glucose 169 mg/dL (75-110) H 09/12/17 10:36 Hemoglobin A1c 6.0 % (4.2-6.5) 09/05/17 08:00 Calcium 7.7 mg/dl (8.6-10.4) L 09/12/17 10:36 Phosphorus 3.7 mg/dL (2.5-4.5) 09/12/17 10:36 Magnesium 1.8 mg/dL (1.6-2.3) 09/12/17 10:36 Iron 74 ug/dL (49-181) 09/05/17 08:00 TIBC 305 ug/dL (250-450) 09/05/17 08:00 % Saturation 28 (20-55) 09/05/17 16:18 Ferritin 491.0 ng/mL 09/05/17 16:18 Total Bilirubin 0.2 mg/dL (0.2-1.3) 09/12/17 10:36 AST 39 U/L (17-59) 09/12/17 10:36 ALT 27 U/L (21-72) 09/12/17 10:36 Alkaline Phosphatase 84 U/L (38-126) 09/12/17 10:36 Total Protein 6.6 g/dL (6.3-8.3) 09/12/17 10:36 Albumin 3.0 g/dL (3.5-5.0) L 09/12/17 10:36 Globulin 3.6 gm/dL (2.2-3.9) 09/12/17 10:36 Albumin/Globulin Ratio 0.8 (1.0-2.1) L 09/12/17 10:36 Triglycerides 149 mg/dL (0-149) 09/05/17 08:00 Cholesterol 170 mg/dL (0-199) 09/05/17 08:00 LDL Cholesterol Direct 80 mg/dL (0-129) 09/05/17 08:00 HDL Cholesterol 28 mg/dL (30-70) L 09/05/17 08:00 Vitamin B12 387 pg/mL (239-931) 09/05/17 08:00 Folate 11.1 ng/mL 09/05/17 08:00 TSH 3rd Generation 2.66 mIU/L (0.46-4.68) 09/05/17 08:00 PTH Intact Whole Molec 280 pg/mL (14-64) H 09/05/17 16:18 Urine Color Straw (YELLOW) 09/04/17 16:42 Urine Clarity Hazy (Clear) 09/04/17 16:42 Urine pH 5.0 (5.0-8.0) 09/04/17 16:42 Ur Specific Jackhorn 1.010 (1.003-1.030) 09/04/17 16:42 Urine Protein 3+ mg/dL (NEGATIVE) H 09/04/17 16:42 Urine Glucose (UA) 1+ mg/dL (Normal) H 09/04/17 16:42 Urine Ketones Negative mg/dL (NEGATIVE) 09/04/17 16:42 Urine Blood 1+ (NEGATIVE) H 09/04/17 16:42 Urine Nitrate Negative (NEGATIVE) 09/04/17 16:42 Urine Bilirubin Negative (NEGATIVE) 09/04/17 16:42 Urine Urobilinogen Normal mg/dL (0.2-1.0) 09/04/17 16:42 Ur Leukocyte Esterase Neg Tarun/uL (Negative) 09/04/17 16:42 Urine WBC (Auto) 1 /hpf (0-5) 09/04/17 16:42 Urine RBC (Auto) 8 /hpf (0-3) H 09/04/17 16:42 Urine Bacteria Rare (<OCC) 09/04/17 16:42 Hep Bs Antigen Negative (NEGATIVE) 09/05/17 16:18 Hep Bs Antibody Positive (NEGATIVE) 09/05/17 17:21 Hep B Core IgM Ab Negative (NEGATIVE) 09/05/17 16:18 Hepatitis C Antibody Negative (NEGATIVE) 09/05/17 16:18 Influenza Typ A,B (EIA) Negative for flu a/b (NEGATIVE) 09/07/17 11:08 Grp A Beta Strep Ag Negative (NEGATIVE) 09/07/17 12:24 Blood Type A POSITIVE 09/07/17 20:35 Antibody Screen Negative 09/07/17 20:35 - Hospital Course Hospital Course: 56 year old male with past medical history of new onset ESRD, gout, DM type II, HTN, HLD, anemia and rheumatoid arthritis presents to the ER for emergent dialysis. Patient states he is scheduled for an AV fistula on September 10. Patient went to see his PMD Dr. Nicole today for medical clearance and due to his abnormal labs Dr. Nicole sent the patient to the hospital for emergent dialysis. Patient denies chest pain, shortness of breath, leg edema, palpitations, anuria, nausea, vomiting, fever, recent travel, sick contacts, diarrhea or constipation. Patient had AV fistula placed by Dr. Cervantes as inpatient without complication. Patient received Dialysis MWF while he was inpatient thru [facility]. Patient was set up with outpatient dialysis at [facility] in [facility]. Discharge Exam - Head Exam Head Exam: ATRAUMATIC, NORMAL INSPECTION - Eye Exam Eye Exam: EOMI, Normal appearance, PERRL Pupil Exam: NORMAL ACCOMODATION, PERRL - Respiratory Exam Respiratory Exam: Clear to PA & Lateral, UNREMARKABLE - Cardiovascular Exam Cardiovascular Exam: REGULAR RHYTHM - GI/Abdominal Exam GI & Abdominal Exam: Normal Bowel Sounds, Soft, Unremarkable - Neurological Exam Neurological exam: Alert, CN II-XII Intact, Normal Gait, Oriented x3, Reflexes Normal - Psychiatric Exam Psychiatric exam: Normal Affect, Normal Mood - Skin Skin Exam: Dry, Intact, Normal Color, Warm Discharge Plan - Discharge Medications Prescriptions: cloNIDine [Catapres] 0.2 mg PO TTS 30 Days tab Colchicine [Colcrys] 0.6 mg PO TTS 30 Days tablet Docusate Sodium [Colace] 100 mg PO BID #60 capsule Epoetin Chuy [Procrit] 10,000 unit IV TTS 30 Days ml Famotidine [Pepcid] 20 mg PO DAILY #30 tab - Follow Up Plan Condition: STABLE Disposition: HOME/ ROUTINE Instructions: High Blood Pressure (DC), Clonidine, Epoetin Chuy, Famotidine, End Stage Kidney Disease (DC), Dialysis and Diet, Renal Failure Diet (DC) Additional Instructions: Please continue taking medications as prescribed. The nurse will provide you with specific instructions what medications to take and how to take them. Please follow up with your primary care doctor in 7-10 days. If you would like to follow up in our clinic you may. Please call to make an appointment. I have attached the information to the clinic. You are going to have dialysis on Friday, and Friday at 2:30 pm at [facility] Please come back to the ED if your symptoms return. Please take the following medications as prescribed: - Calcitriol 0.25mg by mouth 1x per day - Phoslo 667mg by mouth three times per day - Coreg 12.5 mg by mouth two times per day, once with breakfast and once with dinner - Cholestyramine 4gm by mouth 2 times per day with breakfast and dinner - Clonidine 0.2mg by mouth Friday, , Friday - Procrit 81115 units IV Friday, , Friday that will be given to you at dialysis - Pepcid 20mg by mouth one time per day with breakfast - Colchicine 0.6 mg Friday, , Friday - Colace 100mg by mouth 2 times per day with breakfast and dinner - Norvasc 5mg by mouth 1 time peor day with lunch Referrals: [facility] at [facility] [Outside] Julio Lezama MD [Staff Provider] - Servando Cervantes Jr., MD [Staff Provider] - <Saurabh Anaya - Last Filed: 09/12/17 19:05> Provider - Provider Date of Admission: 09/04/17 16:54 Attending physician: Saurabh Anaya MD Time Spent in preparation of Discharge (in minutes): 40 Hospital Course - Lab Results Lab Results: Micro Results 09/08/17 18:00 Blood-Venous Blood Culture - Preliminary NO GROWTH AFTER 4 DAYS 09/08/17 18:00 Blood-Venous Blood Culture - Preliminary NO GROWTH AFTER 4 DAYS 09/06/17 22:40 Blood Blood Culture - Final NO GROWTH AFTER 5 DAYS 09/06/17 22:40 Blood Gram Stain - Final TEST NOT PERFORMED 09/06/17 22:45 Blood Blood Culture - Final NO GROWTH AFTER 5 DAYS 09/06/17 22:45 Blood Gram Stain - Final TEST NOT PERFORMED 09/07/17 12:54 Urine,Clean Catch Urine Culture - Final No Growth (<1,000 CFU/ML) 09/07/17 12:24 Throat Group A Strep Throat Culture - Final NO BETA STREP GROUP A ISOLATED. 09/04/17 16:17 Urine,Clean Catch Urine Culture - Final No Growth (<1,000 CFU/ML) Most Recent Lab Values WBC 11.5 K/uL (4.8-10.8) H 09/12/17 10:36 RBC 2.92 Mil/uL (4.40-5.90) L 09/12/17 10:36 Hgb 8.1 g/dL (12.0-18.0) L 09/12/17 10:36 Hct 25.2 % (35.0-51.0) L 09/12/17 10:36 MCV 86.2 fL (80.0-94.0) 09/12/17 10:36 MCH 27.6 pg (27.0-31.0) 09/12/17 10:36 MCHC 32.0 g/dL (33.0-37.0) L 09/12/17 10:36 RDW 17.9 % (11.5-14.5) H 09/12/17 10:36 Plt Count 246 K/uL (130-400) 09/12/17 10:36 MPV 7.7 fL (7.2-11.7) 09/12/17 10:36 Neut % (Auto) 70.7 % (50.0-75.0) 09/12/17 10:36 Lymph % (Auto) 18.8 % (20.0-40.0) L 09/12/17 10:36 [place] % (Auto) 8.5 % (0.0-10.0) 09/12/17 10:36 Eos % (Auto) 1.4 % (0.0-4.0) 09/12/17 10:36 Baso % (Auto) 0.6 % (0.0-2.0) 09/12/17 10:36 Neut # (Auto) 8.1 K/uL (1.8-7.0) H 09/12/17 10:36 Lymph # (Auto) 2.2 K/uL (1.0-4.3) 09/12/17 10:36 [place] # (Auto) 1.0 K/uL (0.0-0.8) H 09/12/17 10:36 Eos # (Auto) 0.2 K/uL (0.0-0.7) 09/12/17 10:36 Baso # (Auto) 0.1 K/uL (0.0-0.2) 09/12/17 10:36 Neutrophils % (Manual) 66 % (50-75) 09/12/17 10:36 Band Neutrophils % 6 % (0-2) H 09/12/17 10:36 Lymphocytes % (Manual) 19 % (20-40) L 09/12/17 10:36 Reactive Lymphs % 1 % (0-0) H 09/12/17 10:36 Monocytes % (Manual) 5 % (0-10) 09/12/17 10:36 Metamyelocytes % 1 % (0-0) H 09/12/17 10:36 Myelocytes % 2 % (0-0) H 09/12/17 10:36 Platelet Estimate Normal (NORMAL) 09/12/17 10:36 Polychromasia Slight 09/12/17 10:36 Hypochromasia (manual) Slight 09/12/17 10:36 Anisocytosis (manual) Slight 09/12/17 10:36 PT 10.6 SECONDS (9.7-12.2) 09/05/17 08:00 INR 1.0 09/05/17 08:00 APTT 31 SECONDS (21-34) 09/05/17 08:00 Sodium 137 mmol/L (132-148) 09/12/17 10:36 Potassium 3.5 mmol/L (3.6-5.2) L 09/12/17 10:36 Chloride 98 mmol/L (98-107) 09/12/17 10:36 Carbon Dioxide 23 mmol/L (22-30) 09/12/17 10:36 Anion Gap 19 (10-20) 09/12/17 10:36 BUN 49 mg/dL (9-20) H 09/12/17 10:36 Creatinine 5.9 mg/dL (0.8-1.5) H 09/12/17 10:36 Est GFR ( Amer) 12 09/12/17 10:36 Est GFR (Non-Af Amer) 10 09/12/17 10:36 POC Glucose (mg/dL) 115 mg/dL (65-110) H 09/12/17 16:05 Random Glucose 169 mg/dL (75-110) H 09/12/17 10:36 Hemoglobin A1c 6.0 % (4.2-6.5) 09/05/17 08:00 Calcium 7.7 mg/dl (8.6-10.4) L 09/12/17 10:36 Phosphorus 3.7 mg/dL (2.5-4.5) 09/12/17 10:36 Magnesium 1.8 mg/dL (1.6-2.3) 09/12/17 10:36 Iron 74 ug/dL (49-181) 09/05/17 08:00 TIBC 305 ug/dL (250-450) 09/05/17 08:00 % Saturation 28 (20-55) 09/05/17 16:18 Ferritin 491.0 ng/mL 09/05/17 16:18 Total Bilirubin 0.2 mg/dL (0.2-1.3) 09/12/17 10:36 AST 39 U/L (17-59) 09/12/17 10:36 ALT 27 U/L (21-72) 09/12/17 10:36 Alkaline Phosphatase 84 U/L (38-126) 09/12/17 10:36 Total Protein 6.6 g/dL (6.3-8.3) 09/12/17 10:36 Albumin 3.0 g/dL (3.5-5.0) L 09/12/17 10:36 Globulin 3.6 gm/dL (2.2-3.9) 09/12/17 10:36 Albumin/Globulin Ratio 0.8 (1.0-2.1) L 09/12/17 10:36 Triglycerides 149 mg/dL (0-149) 09/05/17 08:00 Cholesterol 170 mg/dL (0-199) 09/05/17 08:00 LDL Cholesterol Direct 80 mg/dL (0-129) 09/05/17 08:00 HDL Cholesterol 28 mg/dL (30-70) L 09/05/17 08:00 Vitamin B12 387 pg/mL (239-931) 09/05/17 08:00 Folate 11.1 ng/mL 09/05/17 08:00 TSH 3rd Generation 2.66 mIU/L (0.46-4.68) 09/05/17 08:00 PTH Intact Whole Molec 280 pg/mL (14-64) H 09/05/17 16:18 Urine Color Straw (YELLOW) 09/04/17 16:42 Urine Clarity Hazy (Clear) 09/04/17 16:42 Urine pH 5.0 (5.0-8.0) 09/04/17 16:42 Ur Specific Jack[place] 1.010 (1.003-1.030) 09/04/17 16:42 Urine Protein 3+ mg/dL (NEGATIVE) H 09/04/17 16:42 Urine Glucose (UA) 1+ mg/dL (Normal) H 09/04/17 16:42 Urine Ketones Negative mg/dL (NEGATIVE) 09/04/17 16:42 Urine Blood 1+ (NEGATIVE) H 09/04/17 16:42 Urine Nitrate Negative (NEGATIVE) 09/04/17 16:42 Urine Bilirubin Negative (NEGATIVE) 09/04/17 16:42 Urine Urobilinogen Normal mg/dL (0.2-1.0) 09/04/17 16:42 Ur Leukocyte Esterase Neg Tarun/uL (Negative) 09/04/17 16:42 Urine WBC (Auto) 1 /hpf (0-5) 09/04/17 16:42 Urine RBC (Auto) 8 /hpf (0-3) H 09/04/17 16:42 Urine Bacteria Rare (<OCC) 09/04/17 16:42 Hep Bs Antigen Negative (NEGATIVE) 09/05/17 16:18 Hep Bs Antibody Positive (NEGATIVE) 09/05/17 17:21 Hep B Core IgM Ab Negative (NEGATIVE) 09/05/17 16:18 Hepatitis C Antibody Negative (NEGATIVE) 09/05/17 16:18 Influenza Typ A,B (EIA) Negative for flu a/b (NEGATIVE) 09/07/17 11:08 Grp A Beta Strep Ag Negative (NEGATIVE) 09/07/17 12:24 Blood Type A POSITIVE 09/07/17 20:35 Antibody Screen Negative 09/07/17 20:35 Attending/Attestation - Attestation I have personally seen and examined this patient.: Yes I have fully participated in the care of the patient.: Yes I have reviewed all pertinent clinical information, including history, physical exam and plan: Yes Notes (Text): 09/12/17 19:03 Patient was seen and examined shortly after resident in the Dialysis Unit. Exam, assessment and plan, and discharge instructions were gone over with the resident. Saurabh Anaya D.O.
[2017-09-12 13:40] VITALS: BP 163/87; RESP 18
[2017-09-12 13:46] VITALS: PULSE 70; TEMP 98
[2019-09-10] MEDS ORDERED: Midazolam 2 MG/2 ML VIAL ONE (16:20)
[2019-09-10] MEDS ORDERED: Propofol 10 mg/ml Inj (20 ML) ONE (16:20)
[2019-09-10] MEDS ORDERED: ePHEDrine 50 mg/ml Inj ONE (16:20)
== END 2017-09-12 16:58 | disposition home or self-care (01) | DRG 315 ==
LOC: C.ER 15:50 → C.3T 16:54 → C.5S 09-05 13:15 → C.3T 09-05 13:26 → C.5S 09-05 17:00
PROVIDERS: ADMIT Family Medicine; ATTEND Family Medicine
PROC: 02HV33Z Insertion of Infusion Device into Superior Vena Cava, Percutaneous Approach (ICD-10-PCS; 2017-09-05)
PROC: 5A1D70Z Performance of Urinary Filtration, Intermittent, Less than 6 Hours Per Day (ICD-10-PCS; 2017-09-06)
PROC: 30233N1 Transfusion of Nonautologous Red Blood Cells into Peripheral Vein, Percutaneous Approach (ICD-10-PCS; 2017-09-08)
PROC: 03170ZD Bypass Right Brachial Artery to Upper Arm Vein, Open Approach (ICD-10-PCS; principal; 2017-09-09 14:15)
DX: I12.0 Hypertensive chronic kidney disease with stage 5 chronic kidney disease or end stage renal disease (principal); E11.21 Type 2 diabetes mellitus with diabetic nephropathy; E11.22 Type 2 diabetes mellitus with diabetic chronic kidney disease; E87.5 Hyperkalemia; N18.6 End stage renal disease; E87.2 Acidosis; D63.1 Anemia in chronic kidney disease; E78.5 Hyperlipidemia, unspecified; F17.210 Nicotine dependence, cigarettes, uncomplicated; J34.2 Deviated nasal septum; K59.00 Constipation, unspecified; M06.9 Rheumatoid arthritis, unspecified; M10.9 Gout, unspecified; R04.0 Epistaxis; Z99.2 Dependence on renal dialysis; R50.9 Fever, unspecified

== ENCOUNTER 2017-10-20 21:52 | Emergency (ER) | payer MEDICAID ==
[2017-10-20 21:53] VITALS: BMI 23.6
--- NOTE | 2017-10-20 23:38 | C.PDOC ---
History Of Present Illness 56 year old male who is currently a dialysis patient presents to the emergency department after being advised by his it security consulting director Dr. Lezama for evaluation of fever. Patient reports he has been experiencing a fever intermittently for the past several weeks. Patient reports he is taking Vancomycin, and admits to having a vague cough for the past few days. Patient denies shortness of breath, and states his last dialysis treatment was today. Time Seen by Provider: 10/20/17 23:18 Chief Complaint (Nursing): Fever History Per: Patient History/Exam Limitations: no limitations Onset/Duration Of Symptoms: Waxing/Waning, Intermittent Episodes, Other (weeks) Associated Symptoms: Fever, Cough Past Medical History Reviewed: Historical Data, Nursing Documentation, Vital Signs Vital Signs: Last Vital Signs Temp 98.5 F 10/21/17 02:59 Pulse 97 H 10/21/17 02:59 Resp 16 10/21/17 02:59 BP 163/89 H 10/21/17 02:59 Pulse Ox 97 10/21/17 02:59 - Medical History PMH: HTN, Chronic Kidney Disease Surgical History: No Surg Hx - [facility] Procedures (09/04/17) BYPASS RIGHT BRACHIAL ARTERY TO UP ARM VEIN, OPEN APPROACH (09/04/17) INSERTION OF INFUSION DEV INTO SUP VENA CAVA, PERC APPROACH (09/04/17) TRANSFUSE NONAUT RED BLOOD CELLS IN PERIPH VEIN, PERC (09/04/17) Family History: States: No Known Family Hx - Social History Hx Alcohol Use: No Hx Substance Use: No - Immunization History Hx Tetanus Toxoid Vaccination: No Hx Influenza Vaccination: No Hx Pneumococcal Vaccination: No Review Of Systems Constitutional: Positive for: Fever Respiratory: Positive for: Cough. Negative for: Shortness of Breath Physical Exam - Physical Exam Appears: Non-toxic, No Acute Distress Skin: Normal Color, Warm, Dry, No Rash, Other (intact) Head: Atraumatic, Normacephalic Eye(s): bilateral: Normal Inspection Nose: Normal Neck: Supple, Other (IJ Dialysis Catheter placement on neck) Cardiovascular: Rhythm Regular Respiratory: Normal Breath Sounds, Rales (coarse, to the left base), Rhonchi ( diffuse, scattered, bilateral) Gastrointestinal/Abdominal: Normal Exam, Soft Rectal: No Deferred Extremity: Bilateral: Atraumatic Pulses: Left Dorsalis Pedis: Normal, Right Dorsalis Pedis: Normal Neurological/Psych: Oriented x3, Normal Speech, Normal Cognition, Other (GCS at 15) ED Course And Treatment - Laboratory Results Result Diagrams: 10/20/17 23:55 10/20/17 23:55 - Radiology CXR Interpretation: Yes: No Acute Disease. No: Infiltrates Medical Decision Making Medical Decision Making: Plan: CMP Lactic Acid Plasma Troponin CBC CXR One-View Ultram 50mg PO Blood Culture Influenza A B Impression: Fever vs. Bacteremia vs. Pneumonia Disposition - Disposition Referrals: Julio Lezama MD [Staff Provider] - Disposition: HOME/ ROUTINE Disposition Time: 05:16 Condition: GOOD Instructions: Viral Syndrome (DC) Forms: [employer] (Trinidadian) Print Language: MALAYSIAN - Clinical Impression Clinical Impression: Influenza-like illness - Scribe Statement The provider has reviewed the documentation as recorded by the Scribe (John Ivory) Provider Attestation: All medical record entries made by the Scribe were at my direction and personally dictated by me. I have reviewed the chart and agree that the record accurately reflects my personal performance of the history, physical exam, medical decision making, and the department course for this patient. I have also personally directed, reviewed, and agree with the discharge instructions and disposition.
[2017-10-21] LABS: BASO # 0.1 K/uL (0.0-0.2); BASO % 0.7 % (0.0-2.0); EOS # 0.4 K/uL (0.0-0.7); EOS % 4.4 % (0.0-4.0); HEMOGLOBIN 10.8 g/dL (12.0-18.0); LYMPH # 1.3 K/uL (1.0-4.3); LYMPH % 14.9 % (20.0-40.0); MEAN CORPUSCULAR HEMOGLOBIN 28.6 pg (27.0-31.0); MEAN CORPUSCULAR HGB CONC 32.8 g/dL (33.0-37.0); MEAN PLATELET VOLUME 8.1 fL (7.2-11.7); MONO % 10.7 % (0.0-10.0); NEUT # 6.2 K/uL (1.8-7.0); NEUT % 69.3 % (50.0-75.0); NRBC % 0.1 % (0.0-2.0); RBC 3.77 Mil/uL (4.40-5.90); RED CELL DISTRIBUTION WIDTH 18.4 % (11.5-14.5)
[2017-10-21 00:16] LABS: ALB/GLOB RATIO 0.9 (1.0-2.1); ALBUMIN 3.8 g/dL (3.5-5.0); CALCIUM 8.5 mg/dl (8.6-10.4)
[2017-10-21 00:26] LABS: TROPONIN I 0.068 ng/mL (0.00-0.120)
[2017-10-21 03:00] VITALS: BP 163/89; PULSE 97; RESP 16; TEMP 98.5; O2SAT 97
--- NOTE | 2017-10-21 07:41 | RAD ---
HISTORY: SOB COMPARISON: Chest x-ray 09/06/2017 TECHNIQUE: Chest one view . FINDINGS: LUNGS: Hypoinflated lungs. Mild pulmonary vascular congestion. Area of subsegmental atelectasis right upper lobe with elevation of the or subtle fissure. PLEURA: No pleural effusion is identified. CARDIOVASCULAR: Heart size is top-normal. Stable right-sided dialysis catheter with distal tip overlying the region of the right atrium. Atherosclerotic calcifications noted of the aorta. OSSEOUS STRUCTURES: No acute fracture identified. VISUALIZED UPPER ABDOMEN: Unremarkable. OTHER FINDINGS: None. IMPRESSION: Hypoinflated lungs. Mild pulmonary vascular congestion
== END 2017-10-21 03:05 | disposition home or self-care (01) ==
LOC: C.ER 21:52
DX: J11.1 Influenza due to unidentified influenza virus with other respiratory manifestations (principal)